=== PATIENT | male | born 1955 | race Caucasian/White ===

== ENCOUNTER 2017-06-20 10:46 | Outpatient (CLI) | payer MEDICAID | END 2017-06-20 10:47 | disposition EMS.NT | LOC: EMS 10:46 | PROVIDERS: ATTEND Surgery | DX: S01.00XA Unspecified open wound of scalp, initial encounter (principal); X58.XXXA Exposure to other specified factors, initial encounter; Y92.029 Unspecified place in mobile home as the place of occurrence of the external cause ==

== ENCOUNTER 2018-06-25 15:59 | Emergency (ER) | payer MEDICAID ==
[2018-06-25 16:14] VITALS: BP 132/62
--- NOTE | 2018-06-25 16:26 | ED Physician Documentation ---
PD HPI LOWER EXT INJURY - Stated complaint Stated Complaint: RT ANKLE INJ - Chief complaint Chief Complaint: Ext Problem - History obtained from History obtained from: Patient - History of Present Illness PD HPI LOW EXT INJURY LOCATION: Right, Ankle Type of injury: Twist (he accidentally stepped in a pothole and his foot twisted and has pain laterally on walking and weight bearing.) Timing - onset: Last night Review of Systems Constitutional: denies: Fever, Chills, Myalgias Skin: denies: Abrasion (s), Laceration (s) Musculoskeletal: denies: Neck pain, Back pain PD PAST MEDICAL HISTORY - Past Medical History Cardiovascular: None Respiratory: None - Present Medications Home Medications: Ambulatory Orders Medication Instructions Recorded Confirmed Amlodipine Besylate 10 mg PO DAILY 06/25/18 06/25/18 Guaifenesin/Dextromethorphan [Qc 118 ml PO DAILY 06/25/18 06/25/18 Tussin Dm Liquid] Metoprolol Succinate 50 mg PO DAILY 06/25/18 06/25/18 Pantoprazole [Protonix] 40 mg PO DAILY 06/25/18 06/25/18 QUEtiapine [SEROquel] 50 mg PO QPM 06/25/18 06/25/18 Trazodone HCl 100 mg PO DAILY 06/25/18 06/25/18 - Allergies Allergies/Adverse Reactions: Allergies Allergy/AdvReac Type Severity Reaction Status Date / Time No Known Drug Allergies Allergy Verified 06/25/18 16:13 PD ED PE NORMAL - Vitals Vital signs reviewed: Yes - General General: Alert and oriented X 3, Well developed/nourished, Other - HEENT HEENT: Atraumatic - Derm Derm: Normal color, Warm and dry - Extremities Extremities: No deformity, Other (right ankle tender anterolateral aspect and at proximal tarsals.) Results - Vitals Vitals: Oxygen O2 Source Room air Departure - Departure Disposition: Home, Self Care Clinical Impression: Ankle sprain Qualifiers: Encounter type: initial encounter Involved ligament of ankle: unspecified ligament Laterality: right Qualified Code(s): S93.401A - Sprain of unspecified ligament of right ankle, initial encounter Condition: Stable Record reviewed to determine appropriate education?: Yes Instructions: ED Sprain Ankle Follow-Up: ROSE ROGERS ARNP [Primary Care Provider] - Comments: Use ibuprofen or naproxen as needed for inflammation. Rest and elevate the ankle often for the next day or 2 to reduce swelling. Use the boot orthosis to support the ankle when up and around for the next week or 2 until fully healed. Your x-ray is normal without any fractures but you obviously have a good injury of the ligaments and muscles given the pain and swelling. This can take a couple of weeks to heal up. Activity as able. Discharge Date/Time: 06/25/18 18:28
[2018-06-25] MEDS ORDERED: IBUPROFEN 600 MG TABLET PO STA (16:33)
[2018-06-25] MEDS ORDERED: ACETAMINOPHEN 325 MG TABLET PO STA (16:34)
[2018-06-25] MEDS ORDERED: traMADol 50 MG TABLET PO STA (16:34)
--- NOTE | 2018-06-25 17:18 | XRAY Report ---
Reason: inversion injury ankle yesterday; swelling and daniel Procedure Date: 06/25/2018 Accession Number: [id number] / [id number] Procedure: XR - Ankle 3 View RT CPT Code: FULL RESULT: EXAM: RIGHT ANKLE RADIOGRAPHY EXAM DATE: 06/25/2018 05:08 PM. CLINICAL HISTORY: Inversion injury ankle yesterday. Right ankle pain and swelling. COMPARISON: None. TECHNIQUE: 3 views. FINDINGS: Bones: No acute fracture or bony lesion. Degenerative spurring. Joints: Ankle mortise is well-maintained. No ankle effusion. Calcification of the syndesmosis noted. Degenerative changes at the distal tibia/fibular joint space. Soft Tissues: Soft tissue edema. IMPRESSION: 1. No acute osseous abnormalities. 2. Soft tissue edema. 3. Degenerative changes of the right ankle. RADIA
== END 2018-06-25 18:28 | disposition home or self-care (01) ==
LOC: ED 15:59
DX: S93.401A Sprain of unspecified ligament of right ankle, initial encounter (principal); W18.42XA Slipping, tripping and stumbling without falling due to stepping into hole or opening, initial encounter; X50.1XXA Overexertion from prolonged static or awkward postures, initial encounter
CPT/HCPCS: 73610; 99282; 99283; A9270

== ENCOUNTER 2018-10-19 13:39 | Emergency (ER) | payer MEDICAID ==
[2018-10-19 15:02] LABS: BASOPHILS # (AUTO) 0.1 10^3/uL (0.0-0.1); BASOPHILS % (AUTO) 0.8 %; EOSINOPHILS # (AUTO) 0.2 10^3/uL (0.0-0.7); EOSINOPHILS % (AUTO) 3.7 %; HGB - HEMOGLOBIN 12.2 g/dL (14.0-18.0); LYMPHOCYTES # (AUTO) 2.6 10^3/uL (1.5-3.5); LYMPHOCYTES % (AUTO) 38.8 %; MEAN CORPUSCULAR HEMOGLOBIN 36.2 pg (27.0-31.0); MEAN CORPUSCULAR HGB CONC 33.3 g/dL (32.0-36.0); MEAN CORPUSCULAR VOLUME 108.9 fL (80.0-94.0); MEAN PLATELET VOLUME 7.3 fL (7.4-11.4); MONOCYTES # (AUTO) 0.8 10^3/uL (0.0-1.0); NEUTROPHILS # (AUTO) 2.9 10^3/uL (1.5-6.6); NEUTROPHILS % (AUTO) 44.7 %; PLT - PLATELET COUNT 115 10^3/uL (130-450); RED BLOOD COUNT 3.36 10^6/uL (4.70-6.10); RED CELL DISTRIBUTION WIDTH 17.1 % (12.0-15.0); WHITE BLOOD COUNT 6.6 x10^3/uL (4.8-10.8)
[2018-10-19] MEDS ORDERED: chlordiazePOXIDE 25 MG CAPSULE PO STA (15:07)
--- NOTE | 2018-10-19 15:07 | ED Physician Documentation ---
History of Present Illness - Stated complaint Stated Complaint: ETOH DETOX - Chief complaint Chief Complaint: MHE - History obtained from History obtained from: Patient - History of Present Illness Timing: Today Pain level max: 0 Pain level now: 0 - Additonal information Additional information: 63-year-old male presents the emergency department stating he wants to detox from alcohol. He has never had seizures or hallucinations. Has been to rehab before. States he drinks 6-8 servings of liquor per day. Last drink was this morning. Nothing makes it better or worse Review of Systems Ten Systems: 10 systems reviewed and negative Constitutional: denies: Fever, Chills Nose: denies: Rhinorrhea / runny nose, Congestion Throat: denies: Sore throat Cardiac: denies: Chest pain / pressure GI: denies: Vomiting, Diarrhea Skin: denies: Rash Musculoskeletal: denies: Neck pain, Back pain Neurologic: denies: Seizure, Headache PD PAST MEDICAL HISTORY - Past Medical History Cardiovascular: None Respiratory: None - Past Surgical History Past Surgical History: No - Present Medications Home Medications: Ambulatory Orders Medication Instructions Recorded Confirmed Amlodipine Besylate 10 mg PO DAILY 06/25/18 06/25/18 Guaifenesin/Dextromethorphan [Qc 118 ml PO DAILY 06/25/18 06/25/18 Tussin Dm Liquid] Metoprolol Succinate 50 mg PO DAILY 06/25/18 06/25/18 Pantoprazole [Protonix] 40 mg PO DAILY 06/25/18 06/25/18 QUEtiapine [SEROquel] 50 mg PO QPM 06/25/18 06/25/18 Trazodone HCl 100 mg PO DAILY 06/25/18 06/25/18 chlordiazePOXIDE [Librium] 25 - 50 mg PO Q6H PRN #20 capsule 10/19/18 - Allergies Allergies/Adverse Reactions: Allergies Allergy/AdvReac Type Severity Reaction Status Date / Time No Known Drug Allergies Allergy Verified 10/19/18 13:46 - Social History Does the pt smoke?: Yes Smoking Status: Current every day smoker Does the pt drink ETOH?: Yes Does the pt have substance abuse?: No - Immunizations Immunizations are current?: Yes - POLST Patient has POLST: No PD ED PE NORMAL - Vitals Vital signs reviewed: Yes - General General: Alert and oriented X 3, No acute distress - HEENT HEENT: PERRL, Moist mucous membranes - Neck Neck: Supple, no meningeal sign - Cardiac Cardiac: RRR, Strong equal pulses - Respiratory Respiratory: No respiratory distress, Clear bilaterally - Abdomen Abdomen: Soft, Non tender, Non distended - Derm Derm: Warm and dry, No rash - Extremities Extremities: No edema - Neuro Neuro: Alert and oriented X 3 - Psych Psych: Normal mood, Normal affect Results - Vitals Vitals: Vital Signs - 24 hr 10/19/18 10/19/18 13:42 15:39 Temperature 36.6 C Heart Rate 104 H 98 Respiratory 18 18 Rate Blood Pressure 169/69 H 167/95 H O2 Saturation 97 95 Oxygen O2 Source Room air - Labs Labs: Laboratory Tests 10/19/18 10/19/18 10/19/18 14:58 14:58 15:04 WBC 6.6 RBC 3.36 L Hgb 12.2 L Hct 36.5 L MCV 108.9 H MCH 36.2 H MCHC 33.3 RDW 17.1 H Plt Count 115 L MPV 7.3 L Neut # (Auto) 2.9 Lymph # (Auto) 2.6 [place] # (Auto) 0.8 Eos # (Auto) 0.2 Baso # (Auto) 0.1 Absolute Nucleated RBC 0.01 Nucleated RBC % 0.1 Sodium 142 Potassium 3.7 Chloride 105 Carbon Dioxide 19 L Anion Gap 18.0 H BUN 10 Creatinine 0.9 Estimated GFR (MDRD) 86 L Glucose 140 H Calcium 10.3 Total Bilirubin 1.9 H AST 93 H ALT 34 Alkaline Phosphatase 94 Total Protein 8.1 Albumin 3.9 Globulin 4.2 Albumin/Globulin Ratio 0.9 L Lipase 107 H Urine Color DARK YELLOW Urine Clarity CLEAR Urine pH 6.0 Ur Specific [place] 1.020 Urine Protein 100 H Urine Glucose (UA) NEGATIVE Urine Ketones NEGATIVE Urine Occult Blood SMALL H Urine Nitrite NEGATIVE Urine Bilirubin NEGATIVE Urine Urobilinogen >=8.0 H Ur Leukocyte Esterase NEGATIVE Urine RBC 0-5 Urine WBC 0-3 Ur Squamous Epith Cells FEW Squamous Urine Bacteria None Seen Urine Casts 6-10 Hyaline Casts Ur Microscopic Review INDICATED Urine Culture Comments NOT INDICATED Salicylates < 6.0 Urine Opiates Screen NEGATIVE Ur Oxycodone Screen NEGATIVE Urine Methadone Screen NEGATIVE Ur Propoxyphene Screen NEGATIVE Acetaminophen < 10 L Ur Barbiturates Screen NEGATIVE Ur Tricyclics Screen NEGATIVE Ur Phencyclidine Scrn NEGATIVE Ur Amphetamine Screen NEGATIVE U Methamphetamines Scrn NEGATIVE U Benzodiazepines Scrn NEGATIVE Urine Cocaine Screen NEGATIVE U Cannabinoids Screen NEGATIVE Ethyl Alcohol 176.8 PD MEDICAL DECISION MAKING - ED course Complexity details: reviewed results, re-evaluated patient, considered differential, d/w patient ED course: 63-year-old male given a banana bag. Social work consulted. Given resources for rehab. Given a dose of Librium here. We will have him follow-up with rehab. Patient counseled regarding signs and symptoms for which I believe and urgent re-evaluation would be necessary. Patient with good understanding of and agreement to plan and is comfortable going home at this time This document was made in part using voice recognition software. While efforts are made to proofread this document, sound alike and grammatical errors may occur. Departure - Departure Disposition: 01 Home, Self Care Clinical Impression: Alcoholic intoxication Qualifiers: Complication of substance-induced condition: uncomplicated Qualified Code(s): F10.920 - Alcohol use, unspecified with intoxication, uncomplicated Condition: Good Instructions: ED Alcohol Intoxication Follow-Up: ROSE ROGERS ARNP [Primary Care Provider] - Within 1 week Prescriptions: chlordiazePOXIDE [Librium] 25 - 50 mg PO Q6H PRN #20 capsule PRN Reason: Alcohol Withdrawal Comments: Follow up with rehab and detox as instructed by social work today. Return if you worsen. Discharge Date/Time: 10/19/18 16:33
[2018-10-19 15:13] LABS: MUDS CUTOFF CONCENTRATIONS CUTOFF CONC BELOW:
[2018-10-19 15:17] LABS: GLUCOSE, URINE (UA) NEGATIVE (NEGATIVE); KETONES,URINE (UA) NEGATIVE (NEGATIVE); LEUKOCYTE ESTERASE, URINE NEGATIVE (NEGATIVE); NITRITE,URINE NEGATIVE (NEGATIVE); OCCULT BLOOD,URINE SMALL (NEGATIVE); PROTEIN,URINE 100 mg/dL (NEGATIVE); UROBILINOGEN,URINE >=8.0 E.U./dL (NORMAL)
[2018-10-19 15:18] LABS: ACETAMINOPHEN < 10 ug/mL (10-30); ALBUMIN 3.9 g/dL (3.2-5.5); ALBUMIN/GLOBULIN RATIO 0.9 (1.0-2.2); ALKALINE PHOSPHATASE 94 IU/L (42-121); ALT ALANINE AMINOTRANSFERASE 34 IU/L (10-60); AST ASPARTATE AMINOTRANSFERASE 93 IU/L (10-42); BILIRUBIN,TOTAL 1.9 mg/dL (0.2-1.0); BUN - BLOOD UREA NITROGEN 10 mg/dL (6-20); CALCIUM 10.3 mg/dL (8.5-10.3); CARBON DIOXIDE - CO2 19 mmol/L (21-32); CHLORIDE 105 mmol/L (101-111); CREATININE 0.9 mg/dL (0.6-1.2); GFR - MDRD 86 (>89); GLUCOSE 140 mg/dL (70-100); LIPASE 107 U/L (22-51); SALICYLATE < 6.0 mg/dL; SODIUM 142 mmol/L (135-145); TOTAL PROTEIN 8.1 g/dL (6.7-8.2)
[2018-10-19 15:21] LABS: BILIRUBIN,URINE NEGATIVE (NEGATIVE); CLARITY,URINE CLEAR (CLEAR); ICTOTEST,URINE NEGATIVE
[2018-10-19 15:30] LABS: BACTERIA,URINE None Seen /HPF (None Seen); CASTS, URINE 6-10 Hyaline Casts /LPF; RBC,URINE 0-5 /HPF (0-5); SQUAMOUS EPITHELIAL CELL,UR FEW Squamous (<= Few)
[2018-10-19 15:31] LABS: AMPHETAMINE SCREEN,URINE NEGATIVE (NEGATIVE); BENZODIAZEPINES SCREEN, URINE NEGATIVE (NEGATIVE); COCAINE SCREEN URINE NEGATIVE (NEGATIVE); METHADONE SCREEN, URINE NEGATIVE (NEGATIVE); METHAMPHETAMINES SCREEN, URINE NEGATIVE (NEGATIVE); OPIATE SCREEN, URINE NEGATIVE (NEGATIVE); OXYCODONE SCREEN, URINE NEGATIVE (NEGATIVE); PROPOXYPHENE SCREEN, URINE NEGATIVE (NEGATIVE); TRICYCLIC ANTIDEPRESSANT,URINE NEGATIVE (NEGATIVE)
[2018-10-19 15:40] VITALS: BP 167/95
== END 2018-10-19 16:33 | disposition home or self-care (01) ==
LOC: ED 13:39
DX: F10.920 Alcohol use, unspecified with intoxication, uncomplicated (principal); F17.200 Nicotine dependence, unspecified, uncomplicated
CPT/HCPCS: 36415; 80053; 80306; 80307; 80320; 80329; 81001; 83690; 85025; 99283; A9270; 81003; 87086

== ENCOUNTER 2019-03-14 00:36 | Outpatient (CLI) | payer MEDICAID | END 2019-03-14 00:37 | disposition critical access hospital (66) | LOC: EMS 00:36 | PROVIDERS: ATTEND Surgery | DX: R10.9 Unspecified abdominal pain (principal); R07.9 Chest pain, unspecified | CPT/HCPCS: A0425; A0427; A0999 ==

== ENCOUNTER 2019-03-14 01:08 | Emergency (ER) | payer MEDICAID ==
[2019-03-14] MEDS ORDERED: FOLIC ACID INJ 1 MG, THIAMINE INJ 100 MG, MAGNESIUM SULFATE 2 GM, MULTIVITAMIN 10 ML in... IV STA ×5 (01:18)
[2019-03-14] MEDS ORDERED: ONDANSETRON 4 MG/2 ML VIAL IVP STA ×4 (01:19→16:04)
[2019-03-14] MEDS ORDERED: HYDROmorphone 1 MG/ML CARPUJECT IVP STA ×4 (01:19→16:04)
[2019-03-14 01:35] LABS: BASOPHILS # (AUTO) 0.1 10^3/uL (0.0-0.1); BASOPHILS % (AUTO) 0.6 %; EOSINOPHILS % (AUTO) 0.5 %; HGB - HEMOGLOBIN 12.2 g/dL (14.0-18.0); LYMPHOCYTES # (AUTO) 0.5 10^3/uL (1.5-3.5); MEAN CORPUSCULAR HEMOGLOBIN 32.5 pg (27.0-31.0); MEAN CORPUSCULAR HGB CONC 33.4 g/dL (32.0-36.0); MEAN CORPUSCULAR VOLUME 97.3 fL (80.0-94.0); MEAN PLATELET VOLUME 10.7 fL (7.4-11.4); MONOCYTES # (AUTO) 0.5 10^3/uL (0.0-1.0); MONOCYTES % (AUTO) 5.5 %; NEUTROPHILS # (AUTO) 7.4 10^3/uL (1.5-6.6); NEUTROPHILS % (AUTO) 86.8 %; PLT - PLATELET COUNT 112 10^3/uL (130-450); RED BLOOD COUNT 3.75 10^6/uL (4.70-6.10); RED CELL DISTRIBUTION WIDTH 15.2 % (12.0-15.0); WHITE BLOOD COUNT 8.5 x10^3/uL (4.8-10.8)
[2019-03-14 01:43] LABS: ALBUMIN 4.2 g/dL (3.2-5.5); ALBUMIN/GLOBULIN RATIO 0.9 (1.0-2.2); BILIRUBIN,TOTAL 3.5 mg/dL (0.2-1.0); CALCIUM 11.3 mg/dL (8.5-10.3); CREATININE 0.8 mg/dL (0.6-1.2); TOTAL PROTEIN 8.9 g/dL (6.7-8.2)
[2019-03-14] MEDS ORDERED: THIAMINE 100 MG/1 ML 2 ML MDV ONE (01:43)
[2019-03-14] MEDS ORDERED: POTASSIUM CHLORIDE 20 MEQ TABLET PO STA (01:52)
[2019-03-14] MEDS: POTASSIUM CHLOR 10 MEQ/100 ML 10 MEQ/100 ML BAG IV SCH ×7 (02:08→08:16)
[2019-03-14] MEDS ORDERED: IOVERSOL 320 100 ML VIAL IVP ONE ×2 (02:23→03:18)
--- NOTE | 2019-03-14 02:32 | ED Physician Documentation ---
PD HPI ABD PAIN - Stated complaint Stated Complaint: ABD PAIN - Chief complaint Chief Complaint: Abd Pain - History obtained from History obtained from: Patient - History of Present Illness Timing - onset: Today Timing - duration: Hours Timing - details: Abrupt onset, Still present Quality: Sharp, Fullness/distended, Pain Location: All over / everywhere Improved by: Laying still Worsened by: Moving, Position, Palpation Associated symptoms: Nausea, Diarrhea Similar symptoms before: No diagnosis Recently seen: Clinic - Additional information Additional information: 63-year-old alcoholic male has developed acute epigastric abdominal pain this evening that he states is similar to what he has had previously and usually this runs its course in 1 to 2 hours. Tonight he had a homemade cheeseburger he has had pain persistent since he has had some nausea he has not had vomiting he has had severe pain. He states that the pain became intolerable and he finally called 911. He brings in paperwork that he is being worked up by a bilingual teacher and knows that he had some lesions on his liver. He does have elevated calcium as well. Review of Systems Constitutional: denies: Fever, Myalgias, Fatigue Eyes: denies: Decreased vision Ears: denies: Ear pain Nose: denies: Rhinorrhea / runny nose, Congestion Throat: denies: Sore throat Cardiac: denies: Chest pain / pressure, Palpitations Respiratory: denies: Dyspnea, Cough GI: reports: Abdominal Pain, Nausea, Diarrhea. denies: Vomiting, Constipation : denies: Dysuria, Frequency PD PAST MEDICAL HISTORY - Past Medical History Past Medical History: Yes Cardiovascular: None Respiratory: None Endocrine/Autoimmune: Type 2 diabetes, HyPERthyroidism GI: GERD, Chronic diarrhea, Hepatitis, Cirrhosis, Diverticulitis, Other Musculoskeletal: Chronic back pain - Past Surgical History Past Surgical History: Yes General: Appendectomy, Bowel surgery - Present Medications Home Medications: Ambulatory Orders Medication Instructions Recorded Confirmed Amlodipine Besylate 10 mg PO DAILY 06/25/18 06/25/18 Guaifenesin/Dextromethorphan [Qc 118 ml PO DAILY 06/25/18 06/25/18 Tussin Dm Liquid] Metoprolol Succinate 50 mg PO DAILY 06/25/18 06/25/18 Pantoprazole [Protonix] 40 mg PO DAILY 06/25/18 06/25/18 QUEtiapine [SEROquel] 50 mg PO QPM 06/25/18 06/25/18 Trazodone HCl 100 mg PO DAILY 06/25/18 06/25/18 chlordiazePOXIDE [Librium] 25 - 50 mg PO Q6H PRN #20 capsule 10/19/18 - Allergies Allergies/Adverse Reactions: Allergies Allergy/AdvReac Type Severity Reaction Status Date / Time No Known Drug Allergies Allergy Verified 10/19/18 13:46 - Social History Does the pt smoke?: Yes Smoking Status: Current every day smoker Does the pt drink ETOH?: Yes Does the pt have substance abuse?: No - Immunizations Immunizations are current?: Yes - POLST Patient has POLST: No PD ED PE NORMAL - Vitals Vital signs reviewed: Yes (tachy and hypertensive ) - General General: Alert and oriented X 3, Well developed/nourished, Other (grunting in pain ) - HEENT HEENT: Atraumatic, PERRL - Neck Neck: Supple, no meningeal sign, No bony TTP - Cardiac Cardiac: No murmur, Other (tachy to 110) - Respiratory Respiratory: No respiratory distress, Clear bilaterally - Abdomen Abdomen: Other (The abdomen is firm and tender. There is no specificity to the tenderness. Both right and left upper quadrant. There is no gaurding. ) - Back Back: No CVA TTP, No spinal TTP - Derm Derm: Normal color, Warm and dry, No rash - Extremities Extremities: No deformity, No edema - Neuro Neuro: Alert and oriented X 3, computer systems auditor 2-12 intact, No motor deficit, No sensory deficit, Normal speech Eye Opening: Spontaneous Motor: Obeys Commands Verbal: Oriented GCS Score: 15 - Psych Psych: Normal mood, Normal affect Results - Vitals Vitals: Vital Signs - 24 hr 03/14/19 03/14/19 03/14/19 01:09 01:55 02:04 Temperature 37.0 C Heart Rate 104 H Respiratory 20 18 Rate Blood Pressure 163/95 H O2 Saturation 97 88 L 03/14/19 03/14/19 03/14/19 02:34 02:52 04:06 Temperature 36.9 C Heart Rate 108 H 120 H 117 H Respiratory 19 26 H 20 Rate Blood Pressure 180/84 H 180/84 H 158/97 H O2 Saturation 95 95 96 03/14/19 03/14/19 03/14/19 05:29 05:35 07:08 Temperature 37 C Heart Rate 120 H 116 H 105 H Respiratory 20 21 17 Rate Blood Pressure 158/93 H 129/73 O2 Saturation 97 96 94 Oxygen O2 Source Nasal cannula Oxygen Flow Rate 2 - Labs Labs: Laboratory Tests 03/14/19 03/14/19 03/14/19 01:25 01:25 02:55 WBC 8.5 RBC 3.75 L Hgb 12.2 L Hct 36.5 L MCV 97.3 H MCH 32.5 H MCHC 33.4 RDW 15.2 H Plt Count 112 L MPV 10.7 Neut # (Auto) 7.4 H Lymph # (Auto) 0.5 L [place] # (Auto) 0.5 Eos # (Auto) 0.0 Baso # (Auto) 0.1 Absolute Nucleated RBC 0.00 Nucleated RBC % 0.0 Sodium 142 Potassium 2.9 L Chloride 102 Carbon Dioxide 23 Anion Gap 17.0 H BUN 11 Creatinine 0.8 Estimated GFR (MDRD) 98 Glucose 166 H Calcium 11.3 H Total Bilirubin 3.5 H AST 161 H ALT 52 Alkaline Phosphatase 130 H Total Protein 8.9 H Albumin 4.2 Globulin 4.7 H Albumin/Globulin Ratio 0.9 L Lipase 84 H Urine Color YELLOW Urine Clarity CLEAR Urine pH 7.0 Ur Specific [place] 1.015 Urine Protein 30 H Urine Glucose (UA) NEGATIVE Urine Ketones 15 H Urine Occult Blood TRACE-INTA Urine Nitrite NEGATIVE Urine Bilirubin SMALL H Urine Urobilinogen 4 H Ur Leukocyte Esterase NEGATIVE Urine RBC 0-5 Urine WBC 0-3 Ur Squamous Epith Cells NONE SEEN Urine Bacteria None Seen Ur Microscopic Review INDICATED Urine Culture Comments NOT INDICATED Ethyl Alcohol 119.0 - Rads (name of study) CT ab/pel with Radiology: Prelim report reviewed (Impression: 1. Mildly distended gallbladder containing gallstones and/or sludge. No pericholecystic inflammation evident. Right upper quadrant ultrasound can be performed for further access. 2. Status post appendectomy and bowel surgery. No bowel obstruction or free air. 3. Colonic diverticula without evidence of acute diverticulitis. 4. Mild nodularity of liver surface consistent with cirrhotic change. 5. Enlarged hepatic hilar lymph nodes, nonspecific and may be related to underlying liver disease. 6. Small nonobstructive renal calculi. No hydronephrosis or ureteral calculus.), EMP read indepedently, See rad report u/s abd Radiology: Prelim report reviewed (Impression: 1. Multiple gallstones within a mildly distended gallbladder. No pathologic wall thickening. Absent Mejia sign. Findings are therefore equivocal for acute cholecystitis. 2. There is mild extrahepatic biliary ductal dilation measuring up to 7.7 mm. Distal common bile duct demonstrates some tapering. Distal most portion of the common bile duct is obscured by bowel gas. 3. Severe hepatic steatosis and heterogeneity. This could be a sequelae of known hepatitis. 4. Incidentally noted nonobstructing 5 to 6 mm right mid to lower kidney stone.), EMP read indepedently, See rad report PD MEDICAL DECISION MAKING - ED course Complexity details: reviewed old records, reviewed results, re-evaluated patient, considered differential, d/w patient, d/w oim consultant (Dr. Christiane Garrido at [facility] recommends MRCP here and if obstruted send otherwise would suggest jorge be done here. Dr. Benito surgery here recommends MRCP and if not obstucted -- take the gallbladder out. ) ED course: 63-year-old male with recurrent abdominal pain presents this evening with severe abdominal pain that does not go away as usual. He has generalized abdominal pain and CT exam of the abdomen pelvis is remarkable for a dilated gallbladder full of stones and sludge. The biochemical profile is consistent with obstruction with elevation of the alkaline phosphatase and a bilirubin of 3.6. The ultrasound suggests obstruction with CBD of 7.7mm. Patient has some improvement in his pain with use of intravenous Dilaudid and Zofran as well as Toradol. We consulted GI in [place] and surgery here and the patient will have MRCP done here. At shift change care of the patient is turned over to Dr. Meyer awaiting results of MRCP. Departure - Departure Clinical Impression: Dehydration Cholelithiasis Qualifiers: Cholelithiasis location: gallbladder Cholecystitis presence: with cholecystitis Cholecystitis acuity: acute and chronic Biliary obstruction: with biliary obstruction Qualified Code(s): K80.13 - Calculus of gallbladder with acute and chronic cholecystitis with obstruction Abdominal pain Qualifiers: Abdominal location: epigastric Qualified Code(s): R10.13 - Epigastric pain
[2019-03-14] MEDS ORDERED: SODIUM CHLORIDE 0.9% 1,000 ML IV ONE ×2 (02:34→05:07)
[2019-03-14 02:57] LABS: GLUCOSE, URINE (UA) NEGATIVE (NEGATIVE); KETONES,URINE (UA) 15 mg/dL (NEGATIVE); LEUKOCYTE ESTERASE, URINE NEGATIVE (NEGATIVE); NITRITE,URINE NEGATIVE (NEGATIVE); OCCULT BLOOD,URINE TRACE-INTA (NEGATIVE); PROTEIN,URINE 30 mg/dL (NEGATIVE); UROBILINOGEN,URINE 4 E.U./dL (NORMAL)
[2019-03-14 03:01] LABS: CLARITY,URINE CLEAR (CLEAR)
[2019-03-14 03:03] LABS: BILIRUBIN,URINE SMALL (NEGATIVE); ICTOTEST,URINE POSITIVE
[2019-03-14 03:06] LABS: BACTERIA,URINE None Seen /HPF (None Seen); RBC,URINE 0-5 /HPF (0-5); SQUAMOUS EPITHELIAL CELL,UR NONE SEEN (<= Few)
--- NOTE | 2019-03-14 04:14 | CT Report ---
Reason: general abdominal pain Procedure Date: 03/14/2019 Accession Number: [id number] / [id number] Procedure: CT - Abdomen/Pelvis W CPT Code: FULL RESULT: EXAM: CT ABDOMEN AND PELVIS EXAM DATE: 03/14/2019 03:15 AM. CLINICAL HISTORY: General abdominal pain. COMPARISONS: ABD/PEL 09/02/2010 1:01 AM. TECHNIQUE: Routine helical CT imaging was performed through the abdomen and pelvis. IV contrast: OPTI 320 100ML. Enteric contrast: No. Reconstructions: Coronal and sagittal. In accordance with CT protocol optimization, one or more of the following dose reduction techniques were utilized for this exam: automated exposure control, adjustment of mA and/or KV based on patient size, or use of iterative reconstructive technique. FINDINGS: Lung Bases: Problem: Mild atelectasis in right anterior lung, incompletely imaged. Subcentimeter epicardial lymph nodes. Scattered coronary artery calcifications. Liver: Mild nodularity of liver surface suggestive of cirrhosis. Gallbladder/Bile Ducts: Distended gallbladder containing sludge and/or gallstones. No significant biliary dilation. Spleen: Stable splenic size, mildly prominent. Pancreas: Normal. Adrenal Glands: Normal. Kidneys: Probable right renal cyst measuring 1.6 cm. Nonobstructive renal calculi. No hydronephrosis or ureteral calculus. Peritoneal Cavity/Bowel: No bowel obstruction or significant bowel wall thickening. Colonic diverticula without evidence of acute diverticulitis. Appendix is surgically absent. Enlarged lymph nodes at hepatic hilum measuring up to 1.8 cm in short axis. No significant free fluid or free air. Pelvic Organs: Normal. The bladder and visualized pelvic organs are within normal limits. Prostate measures 4.7 cm transverse. Vasculature: Atherosclerotic vascular disease. No aneurysms or other significant abnormality. Bones: Osseous degenerative changes. No acute osseous abnormality. Other: Fat-containing umbilical hernia. Small fat-containing inguinal hernias, larger on the left than right. IMPRESSION: 1. Mildly distended gallbladder containing gallstones and/or sludge. No pericholecystic inflammation evident. Right upper quadrant ultrasound can be performed to further assess. 2. Status post appendectomy and bowel surgery. No bowel obstruction or free air. 3. Colonic diverticula without evidence of acute diverticulitis. 4. Mild nodularity of liver surface consistent with cirrhotic change. 5. Enlarged hepatic hilar lymph nodes, nonspecific and may be related to underlying liver disease. 6. Small nonobstructive renal calculi. No hydronephrosis or ureteral calculus. RADIA
[2019-03-14] MEDS ORDERED: KETOROLAC 30 MG/ML VIAL IVP STA (04:57)
--- NOTE | 2019-03-14 05:17 | Ultrasound Report ---
Reason: RUQ pain Procedure Date: 03/14/2019 Accession Number: [id number] / [id number] Procedure: US - Abdomen Limited CPT Code: FULL RESULT: EXAM: ABDOMEN ULTRASOUND LIMITED, RUQ EXAM DATE: 03/14/2019 04:57 AM CLINICAL HISTORY: Right upper quadrant pain. Chronic diarrhea, hepatitis, abnormal bilirubin and LFTs. COMPARISON: ABDOMEN/PELVIS W/ 03/14/2019 3:06 AM. TECHNIQUE: Real-time scanning was performed with static images obtained. FINDINGS: Liver: Severe increased and heterogeneous echogenicity. No suspicious focal lesion. Liver measures 23.3 cm in length. Portal Vein: Patent with hepatopetal flow. Gallbladder: Mildly distended. Multiple gallstones. Trace free fluid. No pathologic wall thickening. Biliary System: CBD measures 7.7 mm. No intrahepatic or extrahepatic ductal dilatation. Pancreas: Normal appearing head and body. Other portions are obscured by overlying structures. Right Kidney: There is a possible 4.9 mm right mid kidney stone. Small septated cystic abnormality within the right mid kidney noted measuring 1.9 cm. The right kidney measures 12.7 cm in length. Additional possible stone within the right lower kidney, measuring 5.6 mm. Other: None. IMPRESSION: 1. Multiple gallstones within a mildly distended bladder. No pathologic wall thickening. Absent Mejia sign. Findings are, therefore, equivocal for acute cholecystitis. 2. There is mild extrahepatic biliary ductal dilation measuring up to 7.7 mm. Distal CBD demonstrates some tapering. Distal most portion of the CBD is obscured by bowel gas. 3. Severe hepatic steatosis and heterogeneity. This could be a sequela of known hepatitis. 4. Incidentally noted nonobstructing 5-6 mm right mid to lower kidney stone. RADIA
[2019-03-14] MEDS ORDERED: PROMETHAZINE INJ 25 MG in SODIUM CHLORIDE 0.9% 50 ML IV STA (07:29)
[2019-03-14] MEDS ORDERED: GADOBUTROL 15 MMOL/15 ML VIAL ONE (11:56)
[2019-03-14] MEDS ORDERED: GADOBUTROL 15 MMOL/15 ML VIAL IVP ONE (12:56)
--- NOTE | 2019-03-14 13:40 | MRI Report ---
Reason: RUQ pain elevated bili 7.7mm CBD Procedure Date: 03/14/2019 Accession Number: [id number] / [id number] Procedure: MRI - MRCP W/WO CPT Code: FULL RESULT: EXAM: MR ABDOMEN WITH AND WITHOUT CONTRAST EXAM DATE: 03/14/2019 01:01 PM. CLINICAL HISTORY: Right upper quadrant pain. COMPARISON: ABDOMEN/PELVIS W/ 03/14/2019 3:06 AM. TECHNIQUE: Multiplanar breath-hold T1, T2, and DWI sequences obtained through the abdomen on an MR scanner. Images obtained before and after administration of 9 mL Gadavist intravenous contrast. FINDINGS: Lung Bases: Minor atelectatic changes are suggested. No significant effusion. Liver: Nodular contour of the liver suggesting cirrhosis is seen. Heterogeneous fatty change of the liver is seen. On postcontrast imaging there is heterogeneous enhancement of the liver parenchyma. In segment 4A there is a 9 mm subcapsular hypervascular focus seen without definitive washout. The portal and hepatic venous vasculature appears relatively patent. There is periportal lymphadenopathy measuring up to 3.5 x 1.8 cm (image ). Gallbladder/bile ducts: Multiple gallstones are seen in the gallbladder. No significant gallbladder wall thickening or surrounding inflammatory changes. There is no intrahepatic or extrahepatic biliary dilatation. The common bile duct measures up to 5 mm and tapers smoothly distally. Pancreas: The pancreas appears normal with no mass or ductal dilatation. Spleen: Mild splenomegaly measuring 13.9 cm is seen. No masses. Kidneys and Adrenals: The kidneys appear normal with no mass or hydronephrosis. There are a few small cysts in the kidneys. The adrenals appear normal. Bowel: The visualized bowel loops are grossly intact. Trace ascites is seen in the perihepatic space. Retroperitoneum: The retroperitoneal structures appear normal with no mass or lymphadenopathy. IMPRESSION: 1. Cholelithiasis without evidence of choledocholithiasis or biliary dilation. 2. Cirrhotic liver with slightly heterogeneous appearing fatty change. 9 mm hypervascular focus without washout in segment 4A is seen consistent with LR-3 lesion. 3. Mild periportal lymphadenopathy which may be related to active hepatitis. 4. Mild splenomegaly and trace ascites. RADIA
--- NOTE | 2019-03-14 15:07 | CONSULTATION NOTE ---
Referring Provider Name of Referring Provider:: Dr. Meyer Consult Date: 03/14/19 Chief Complaint - Chief Complaint Chief Complaint: abd pain History of Present Illness - Admitted From Admitted From:: ER - History Obtained From Records Reviewed: yes History obtained from: pt, records Exam Limitations: poor historian - History of Present Illness HPI Comment/Other: 63 yo male with onset of diffuse abdominal pain, N/V last night, similar to multiple prior similar episodes, which prompted ER evaluation this morning. He reports sx not clearly related to meals and denies fatty food intolerance. Takes a PPI chronically for presumed GERD. He reports hx of hepatitis C x many years, treated over the past several years on the [facility], details unclear. Hx chronic alcoholism; he reports he has been decreasing his alcohol intake from 7-8 mixed drinks/day to 3-4 per day. He was seen in the ER in 10/2018 with alcohol intoxication and was noted to have abn lft's with bili 1.9 and transaminitis and mildly elevated lipase at that time, along with thrombocytopenia and macrocytosis. He has received all of his medical care on the [facility] until the past few months after moving to [facility]. No local PCP. He reports chronic nonbloody diarrhea and having had a colonoscopy in [place] last year, with unknown results. No recent wt loss, fever, chills, melena, hematochezia, hematemesis. He was noted to have a bili of 3.5 today, with mild transaminitis, mild elevation of lipase, nl WBC, neg UA, an ABD/Pelvis CT showing stones and sludge in gallbladder, nl bile ducts, cirrhotic liver, splenomegaly, portal lymphadenopathy, mild ascites; no evidence of biliary obstruction or acute cholecystitis. ABD US showed same biliary findings plus borderline dilated CBD. MRCP shows hepatic cirrhosis, splenomegaly, mild ascites, no evidence of acute cholecystitis or common duct obstruction or dilatation. Surgical consultation was requested regarding possible need for cholecystectomy. Pt continues to report mild diffuse abdominal pain and nausea. History - Past Medical History Cardiovascular: reports: None Respiratory: reports: None Endocrine/Autoimmune: reports: Type 2 diabetes, HyPERthyroidism, Other (hypercalcemia) GI: reports: GERD, Chronic diarrhea, Hepatitis, Cirrhosis, Diverticulitis, Other Musculoskeletal: reports: Chronic back pain MRSA Hx?: No - Past Surgical History General: reports: Appendectomy, Bowel surgery (what sounds like GABRIELLE for SBO) Ortho: reports: Spine surgery - Family & Social History Living arrangement: At home - Substance History Use: Uses substance without health or social issues: Tobacco Abuse: Recurrent use of substance despite neg consequences: Alcohol Abuse Issues: Other (hepatic cirrhosis) Tobacco Details: Cigarettes - POLST Patient has POLST: No Meds/Allgy - Home Medications Home Medications: Ambulatory Orders Medication Instructions Recorded Confirmed Amlodipine Besylate 10 mg PO DAILY 06/25/18 06/25/18 Guaifenesin/Dextromethorphan [Qc 118 ml PO DAILY 06/25/18 06/25/18 Tussin Dm Liquid] Metoprolol Succinate 50 mg PO DAILY 06/25/18 06/25/18 Pantoprazole [Protonix] 40 mg PO DAILY 06/25/18 06/25/18 QUEtiapine [SEROquel] 50 mg PO QPM 06/25/18 06/25/18 Trazodone HCl 100 mg PO DAILY 06/25/18 06/25/18 chlordiazePOXIDE [Librium] 25 - 50 mg PO Q6H PRN #20 capsule 10/19/18 - Allergies Allergies/Adverse Reactions: Allergies Allergy/AdvReac Type Severity Reaction Status Date / Time No Known Drug Allergies Allergy Verified 10/19/18 13:46 Review of Systems - Constitutional Constitutional: reports: Malaise, Weakness, Poor appetite. denies: Weight gain, Weight loss - Gastrointestinal Gastrointestinal: reports: Abdominal pain, Diarrhea, Nausea, Reflux/heartburn, Poor appetite. denies: Change in bowel habits, Rectal bleeding, Black stools, Vomiting, Coffee grounds emesis - Hematologic/Lymphatic Hematologic/Lymphatic: denies: Bruising, Blood clots, Bleeding tendencies - All Other Systems All Other Systems: reports: Reviewed and negative (or covered in HPI/PMH) Exam - Vital Signs Reviewed Vital Signs: Yes Vital Signs: Vital Signs x48h Pulse Resp BP Pulse Ox 03/14/19 11:00 101 H 15 139/78 H 94 03/14/19 09:00 100 13 121/78 93 03/14/19 07:08 105 H 17 129/73 94 - Physical Exam General Appearance: positive: Alert, Mild distress Eyes Bilateral: positive: Normal inspection, Conjunctivae nml, No scleral icterus ENT: positive: ENT inspection nml, Pharynx nml, No signs of dehydration Neck: positive: Trachea midline. negative: Lymphadenopathy (R), Lymphadenopathy (L) Respiratory: positive: Chest non-tender, No respiratory distress, Breath sounds nml Cardiovascular: positive: Regular rate & rhythm, No murmur, No gallop Abdomen: positive: No organomegaly, Nml bowel sounds, No distention (obese, unclear if distention present), Guarding (mild diffuse guarding but no peritoneal signs), Other (midline surgical scar; reducible nontender umbilical hernia). negative: Hepatomegaly, Splenomegaly, Mass Skin: positive: Color nml, No rash, Warm, Dry. negative: Cyanosis Extremities: positive: No pedal edema. negative: Calf tenderness Neurologic/Psychiatric: positive: Oriented x3 Conclusion/Plan - Diagnosis Diagnosis: Abd pain of unclear etiology; ddx includes acute alcoholic pancreatitis, alcoholic hepatitis, and biliary colic(doubt); no evidence of acute cholecystitis, cholangitis, biliary obstruction. His cholelithiasis may be asymptomatic. He is at high risk for surgery given his cirrhosis, splenomegaly, and ascites. - Plan Plan: I do not believe surgery is indicated at this time for his cholelithiasis. Recommend hospitalist consultation for further medical evaluation of his multiple medical problems. Discussed in detail with Dr. Meyer. Thanks, - Lab Results Fish Bones: 03/14/19 01:25 03/14/19 01:25 Other Lab Results: See HPI - Diagnostic Imaging Results Diagnostic Imaging Results: positive: Final report reviewed Diagnostic Imaging Results Comments: SEE HPI
--- NOTE | 2019-03-14 16:17 | ED Physician Documentation ---
ED Addendum - Addendum Addendum: 03/14/19 16:13 The patient's care was given over to me after the morning shift. The patient was to get an MRCP for evaluation of ductal blockage and there is consideration of gallstone pains. The patient did have his MRCP which did not show any ductal blockage and there is no signs of acute cholecystitis. He does have cholelithiasis. I contacted Dr. Benito who had been consulted by Dr. Luz from the ER earlier in the morning. He came to evaluate the patient and the feeling is less likely to be gallstone pain more likely the chronic mild pancreatitis and liver pain. The patient does see a liver specialist correction last marker and is being evaluated for the liver as well as concern for pancreatitis and has been evaluated for the hypercalcemia. Review of his medicine list showed that he apparently does take a pravastatin and vitamin D and he should review those and discontinue those if he does as it can be causing elevation of his liver and pancreas enzymes and the vitamin D could elevate the calcium. Otherwise we can treat the patient with some nausea and pain medicines and have him follow-up with his primary care and last marker. Discharge diagnoses #1 upper abdominal pain #2 chronic pancreatitis #3 elevated liver enzymes #4 hypercalcemia #5 alcoholism Disposition the patient is discharged home stable.
[2019-03-14 16:56] VITALS: BP 145/81
== END 2019-03-14 17:02 | disposition home or self-care (01) ==
LOC: EDUNIT# → ED 01:08
DX: R10.13 Epigastric pain (principal); E86.0 Dehydration; K86.0 Alcohol-induced chronic pancreatitis; K70.31 Alcoholic cirrhosis of liver with ascites; B19.20 Unspecified viral hepatitis C without hepatic coma; F10.288 Alcohol dependence with other alcohol-induced disorder; K80.20 Calculus of gallbladder without cholecystitis without obstruction; E83.52 Hypercalcemia; R74.8 Abnormal levels of other serum enzymes; E11.9 Type 2 diabetes mellitus without complications; F17.210 Nicotine dependence, cigarettes, uncomplicated
CPT/HCPCS: 36415; 74177; 74183; 76705; 80053; 80320; 81001; 83690; 85025; 96361; 96365; 96366; 96367; 96368; 96375; 96376; 99284; 99285; A9270; A9585; J1170; J3411; J7040; Q9967; 81003; 87086

== ENCOUNTER 2019-05-02 14:33 | Outpatient (CLI) | payer MEDICAID ==
[2019-05-02 17:37] LABS: CREATININE,URINE 98.8 mg/dL; PROTEIN/CREATININE RATIO,URINE 0.2 (<=0.2)
== END 2019-05-02 14:34 | disposition home or self-care (01) ==
LOC: LAB.S 14:33
PROVIDERS: ATTEND Internal Medicine Nephrology
DX: R80.9 Proteinuria, unspecified (principal)
CPT/HCPCS: 82570; 84156

== ENCOUNTER 2019-05-15 03:20 | Outpatient (CLI) | payer MEDICAID | END 2019-05-15 03:21 | disposition EMS.NT | LOC: EMS 03:20 | PROVIDERS: ATTEND Surgery | DX: R45.851 Suicidal ideations (principal) ==

== ENCOUNTER 2019-05-15 04:38 | Emergency (ER) | payer MEDICAID ==
[2019-05-15 05:25] LABS: BASOPHILS # (AUTO) 0.1 10^3/uL (0.0-0.1); BASOPHILS % (AUTO) 0.8 %; EOSINOPHILS # (AUTO) 0.5 10^3/uL (0.0-0.7); EOSINOPHILS % (AUTO) 5.1 %; HGB - HEMOGLOBIN 13.8 g/dL (14.0-18.0); LYMPHOCYTES # (AUTO) 3.7 10^3/uL (1.5-3.5); LYMPHOCYTES % (AUTO) 39.3 %; MEAN CORPUSCULAR HEMOGLOBIN 33.4 pg (27.0-31.0); MEAN CORPUSCULAR HGB CONC 33.3 g/dL (32.0-36.0); MEAN CORPUSCULAR VOLUME 100.2 fL (80.0-94.0); MEAN PLATELET VOLUME 10.4 fL (7.4-11.4); MONOCYTES # (AUTO) 0.9 10^3/uL (0.0-1.0); MONOCYTES % (AUTO) 9.7 %; NEUTROPHILS # (AUTO) 4.2 10^3/uL (1.5-6.6); NEUTROPHILS % (AUTO) 44.8 %; PLT - PLATELET COUNT 124 10^3/uL (130-450); RED BLOOD COUNT 4.13 10^6/uL (4.70-6.10); RED CELL DISTRIBUTION WIDTH 14.3 % (12.0-15.0); WHITE BLOOD COUNT 9.5 x10^3/uL (4.8-10.8)
[2019-05-15 05:41] LABS: ACETAMINOPHEN < 10 ug/mL (10-30); ALBUMIN/GLOBULIN RATIO 0.8 (1.0-2.2); ALKALINE PHOSPHATASE 85 IU/L (42-121); ALT ALANINE AMINOTRANSFERASE 21 IU/L (10-60); AST ASPARTATE AMINOTRANSFERASE 43 IU/L (10-42); BUN - BLOOD UREA NITROGEN 13 mg/dL (6-20); CALCIUM 11.1 mg/dL (8.5-10.3); CARBON DIOXIDE - CO2 22 mmol/L (21-32); CHLORIDE 108 mmol/L (101-111); CREATININE 0.8 mg/dL (0.6-1.2); GFR - MDRD 98 (>89); GLUCOSE 118 mg/dL (70-100); LIPASE 194 U/L (22-51); SALICYLATE < 6.0 mg/dL; SODIUM 143 mmol/L (135-145)
[2019-05-15] MEDS ORDERED: OLANZapine 10 MG VIAL IM STA (06:19)
--- NOTE | 2019-05-15 06:41 | ED Physician Documentation ---
PD HPI MHE - Stated complaint Stated Complaint: SI - Chief complaint Chief Complaint: MHE - History obtained from History obtained from: Patient, Police - History of Present Illness Primary symptom: Suicidal ideation Timing - onset: Today Contributing factors: Substance abuse - ETOH Similar symptoms before: Diagnosis (SI) Recently seen: Emergency Dept - Additional information Additional information: 63-year-old alcoholic male with a history of hepatitis C was drinking at home this evening when he became suicidal and he had a gun at his table and called the police. Police and brought the patient to the emergency department on an involuntary hold with a loaded gun in his home. The patient is a poor historian with a blood alcohol over of over 400. He does indicate that he has had suicidal ideation most of his life and he has not sought counseling for this. He has never been hospitalized for this. He does drink heavily. He states of the last time he was sober was for treatment of his hepatitis C. The patient was recently in the emergency department with abdominal pain and a picture of obstruction. An MRCP was obtained which did not demonstrate the obstruction and he was discharged to home he has not followed up. He does have a history of gallstones. Review of Systems Constitutional: denies: Fever Eyes: denies: Decreased vision Ears: denies: Ear pain Nose: denies: Congestion Throat: denies: Sore throat Cardiac: denies: Chest pain / pressure, Palpitations Respiratory: denies: Dyspnea, Cough GI: reports: Abdominal Pain, Diarrhea : denies: Dysuria, Frequency Skin: denies: Rash Musculoskeletal: denies: Neck pain, Back pain, Extremity pain PD PAST MEDICAL HISTORY - Past Medical History Cardiovascular: None Respiratory: None Endocrine/Autoimmune: Type 2 diabetes, HyPERthyroidism, Other (hypercalcemia) GI: GERD, Chronic diarrhea, Hepatitis, Cirrhosis, Diverticulitis, Other Musculoskeletal: Chronic back pain - Past Surgical History Past Surgical History: Yes General: Appendectomy, Bowel surgery (what sounds like GABRIELLE for SBO) Ortho: Spine surgery - Present Medications Home Medications: Ambulatory Orders Medication Instructions Recorded Confirmed Amlodipine Besylate 10 mg PO DAILY 06/25/18 06/25/18 Pantoprazole [Protonix] 40 mg PO BID 06/25/18 06/25/18 QUEtiapine [SEROquel] 50 mg PO QPM 06/25/18 05/15/19 Trazodone HCl 100 mg PO DAILY 06/25/18 06/25/18 LORazepam [Ativan] 1 mg PO Q6H PRN #15 tablet 03/14/19 Promethazine [Phenergan] 25 mg PO Q8H PRN #30 tab 03/14/19 05/15/19 Cetirizine [ZyrTEC] 1 tab DAILY 05/15/19 05/15/19 Cholecalciferol (Vitamin D3) 05/15/19 [Vitamin D3] Dicyclomine [Bentyl] 2 cap TID PRN 05/15/19 05/15/19 Lisinopril 1 tab DAILY 05/15/19 05/15/19 Loperamide [Imodium] 1 tab TID PRN 05/15/19 05/15/19 Magnesium Oxide [Magnesium] 05/15/19 Potassium Chloride 10 mg DAILY 05/15/19 05/15/19 Pravastatin [Pravachol] 2 tab DAILY 05/15/19 05/15/19 Promethazine [Phenergan] 1 tab Q8HR 05/15/19 05/15/19 Sildenafil Citrate [Sildenafil] 1 tab PRN 05/15/19 Thiamine HCl [Vitamin B-1] 05/15/19 - Allergies Allergies/Adverse Reactions: Allergies Allergy/AdvReac Type Severity Reaction Status Date / Time No Known Drug Allergies Allergy Verified 10/19/18 13:46 - Social History Does the pt smoke?: Yes Smoking Status: Current every day smoker Does the pt drink ETOH?: Yes Does the pt have substance abuse?: No - Immunizations Immunizations are current?: Yes - POLST Patient has POLST: No PD ED PE NORMAL - Vitals Vital signs reviewed: Yes (hypertensive and tachypneic) - General General: No acute distress, Well developed/nourished, Other (The patient is slurring his speech ) - HEENT HEENT: Atraumatic, PERRL, EOMI, Other (dry mucous membranes ) - Neck Neck: Supple, no meningeal sign, No bony TTP - Cardiac Cardiac: RRR, No murmur - Respiratory Respiratory: No respiratory distress, Clear bilaterally - Abdomen Abdomen: Soft, Non tender - Back Back: No CVA TTP, No spinal TTP - Derm Derm: Normal color, Warm and dry, No rash - Extremities Extremities: No deformity, No edema - Neuro Neuro: Alert and oriented X 3, pheresis specialist 2-12 intact, No motor deficit, No sensory deficit, Normal speech Eye Opening: Spontaneous Motor: Obeys Commands Verbal: Oriented GCS Score: 15 - Psych Psych: Normal mood, Normal affect Results - Vitals Vitals: Vital Signs - 24 hr 05/15/19 04:53 Temperature 36.6 C Heart Rate 93 Respiratory 26 H Rate Blood Pressure 168/90 H O2 Saturation 93 Oxygen O2 Source Room air - Labs Labs: Laboratory Tests 05/15/19 05/15/19 05/15/19 05:20 05:20 05:20 WBC 9.5 RBC 4.13 L Hgb 13.8 L Hct 41.4 L MCV 100.2 H MCH 33.4 H MCHC 33.3 RDW 14.3 Plt Count 124 L MPV 10.4 Neut # (Auto) 4.2 Lymph # (Auto) 3.7 H [place] # (Auto) 0.9 Eos # (Auto) 0.5 Baso # (Auto) 0.1 Absolute Nucleated RBC 0.00 Nucleated RBC % 0.0 Sodium 143 Potassium 3.7 Chloride 108 Carbon Dioxide 22 Anion Gap 13.0 BUN 13 Creatinine 0.8 Estimated GFR (MDRD) 98 Glucose 118 H Calcium 11.1 H Total Bilirubin 1.0 AST 43 H ALT 21 Alkaline Phosphatase 85 Total Protein 9.0 H Albumin 4.0 Globulin 5.0 H Albumin/Globulin Ratio 0.8 L Lipase 194 H TSH 3.97 Salicylates < 6.0 Acetaminophen < 10 L Ethyl Alcohol 403.1 PD MEDICAL DECISION MAKING - ED course Complexity details: reviewed old records, reviewed results, re-evaluated patient, considered differential, d/w patient ED course: 63-year-old male with history of alcoholism called 911 today when he had a gun on his lap intoxicated in his home feeling suicidal. The patient is requesting help and his blood alcohol is over 400. Here in the emergency department he is administered Zyprexa 10 mg IM to await his blood alcohol level reduction. At shift change his care is turned over to Dr. Garcia.
[2019-05-15 13:29] LABS: MUDS CUTOFF CONCENTRATIONS CUTOFF CONC BELOW:
[2019-05-15 13:33] LABS: BILIRUBIN,URINE NEGATIVE (NEGATIVE); GLUCOSE, URINE (UA) NEGATIVE (NEGATIVE); KETONES,URINE (UA) NEGATIVE (NEGATIVE); LEUKOCYTE ESTERASE, URINE NEGATIVE (NEGATIVE); NITRITE,URINE NEGATIVE (NEGATIVE); OCCULT BLOOD,URINE TRACE-INTA (NEGATIVE); PH,URINE 5.5 PH (5.0-7.5); PROTEIN,URINE 30 mg/dL (NEGATIVE); UROBILINOGEN,URINE 2 E.U./dL (NORMAL)
[2019-05-15 13:36] LABS: CLARITY,URINE CLEAR (CLEAR)
[2019-05-15 13:43] LABS: AMPHETAMINE SCREEN,URINE NEGATIVE (NEGATIVE); BENZODIAZEPINES SCREEN, URINE NEGATIVE (NEGATIVE); COCAINE SCREEN URINE NEGATIVE (NEGATIVE); METHADONE SCREEN, URINE NEGATIVE (NEGATIVE); METHAMPHETAMINES SCREEN, URINE NEGATIVE (NEGATIVE); OPIATE SCREEN, URINE NEGATIVE (NEGATIVE); OXYCODONE SCREEN, URINE NEGATIVE (NEGATIVE); PROPOXYPHENE SCREEN, URINE NEGATIVE (NEGATIVE); TRICYCLIC ANTIDEPRESSANT,URINE NEGATIVE (NEGATIVE)
[2019-05-15 13:54] LABS: BACTERIA,URINE Few /HPF (None Seen); CASTS, URINE 11-25 Hyaline Casts /LPF; RBC,URINE 0-5 /HPF (0-5); SQUAMOUS EPITHELIAL CELL,UR MOD Squamous (<= Few)
[2019-05-15] MEDS ORDERED: LORazepam 1 MG TABLET PO STA (19:52)
--- NOTE | 2019-05-15 19:54 | ED Physician Documentation ---
ED Addendum - Addendum Addendum: 05/15/19 19:53 Signed out to me by Dr. Garcia. Briefly this is a 63-year-old gentleman who came in overnight with an alarmingly high alcohol level and brandishing a gun with intent to hurt himself. He has been cooperative here. I recommended a DCR consult, given that he is very high risk for suicide given male gender, elderly age, and access to firearms. Per report from the nurse DCR refused to see him since he is voluntary. We will put him in line for tele-psychiatry consult ation. I do not think he would be dischargeable though under the circumstances. 05/15/19 22:48 Tele-psychiatry consultation ongoing. Care to Dr. Mcguire at shift change.
--- NOTE | 2019-05-15 22:59 | TELEPSYCH PHYS NOTE ---
Telepsych Note - CHIEF COMPLAINT/HX OF PRESENT ILLNESS Cheif Complaint and History of Present Illness: Name: David Ash : 57. 63M Date: 05/16/19 Location of patient: Last ED Time: 1:30am Location of doctor: [facility] This evaluation was conducted via telepsychiatry with the assistance of onsite staff Chief Complaint: SI/Depression/ETOH History of Present Illness: Pt seen by televideo with help from the onsite staff. Pt is a 63 yo male who reports a hx of depression and ETOH abuse. Pt presented to the ED, BIB police after the pt called them indicating that he was suicidal and had a gun. Apparently when the police arrived to his home he brandished his gun. On arrival to the ED his BAL was noted to be extremely high at over 400. Once clinically sober, he was re-evaluated by the ED staff who report that the pt continued to endorse significant depression, SI and was requesting help. Pt seen and evaluated. Pt reports an approximate 3 week period of worsening depressive sxs. Cites sxs inclusive of pervasive depressed mood, poor sleep, decreased appetite. Feelings of worthlessness. Pt notes over the past few days with increased thoughts of suicide. States he has experienced Si in the past on and off however has never acted on it. States he does recall telling the police that he was suicidal and that he had his guns out. He states he was not holding the gun upon police arrival to his home. Per chart, it indicates that the pt was brandishing a gun. He appears to be minimizing at this point. States he has things to do and that he will just will go home and attend a AA meeting. States he is fine with his psychiatric medications. On ROS, pt denies AVHs, delusions nor HI. Pt notes ongoing SI. In terms of risks, pt is a high risk of suicide, white single older male, access to guns, had plan and means. Also with substance abuse hx. Pt presents as a danger to himself requiring acute inpt psychiatric admission for safety, stabilization and treatment. Pt is NOT voluntary for inpt treatment. Collateral: Discussed case with staff and chart review. SI: prior ideation, reports no attempts. . HI/Violence: Denies HI. Trauma history: none reported Access to weapons: yes, reports he owns a handgun and 2 shotguns. Reports the police took them. Legal: denes Psychiatric History/Treatment History: previous inpt admissions. .Reports he is current Rxed antidepressant by his PCP. Drug/Alcohol History: EToh Medical History: HTN Medications & Freq: see chart Allergies: NKDA Sleep: decreased Family Psych History/History of suicide none reported . Social History: lives alone, employed. Supports: none identified MSE: Appearance and attire: hospital attire Attitude and behavior: guarded Affect and mood: depressed/constricted Association and thought processes: minimizing Thought content: Denies delusions. Deneis HI. Reports SI no intent however earlier had guns out with SI and reported to police desire to end his life. Perception: denies AVHs. Sensorium, memory, and orientation: AxOx3 Intellectual functioning: unable to assess Insight and judgment: impaired - SI/HI/SELF HARM SI/HI/SELF HARM (CURRENT OR HISTORY OF):: SI - PSYCHIATRIC HX/TREATMENT HX Psychiatric: Depression - DRUG/ALCOHOL HX ETOH Use: Liquor - MEDICAL HX Does the pt have a hx of MRSA?: No Cardiovascular: Hypertension Respiratory: None Endocrine/Autoimmune: Type 2 diabetes, HyPERthyroidism, Other (hypercalcemia) Gastrointestinal: GERD, Chronic diarrhea, Hepatitis, Cirrhosis, Diverticulitis, Other Musculoskeletal: Chronic back pain - SURGICAL HX General: Appendectomy, Bowel surgery (what sounds like GABRIELLE for SBO) Orthopedic: Spine surgery - HOME MEDICATIONS Home Meds (as last confirmed): Patient History Medication Instructions Recorded Confirmed Amlodipine Besylate 10 mg PO DAILY 06/25/18 06/25/18 Pantoprazole [Protonix] 40 mg PO BID 06/25/18 06/25/18 QUEtiapine [SEROquel] 50 mg PO QPM 06/25/18 05/15/19 Trazodone HCl 100 mg PO DAILY 06/25/18 06/25/18 Cetirizine [ZyrTEC] 1 tab DAILY 05/15/19 05/15/19 Cholecalciferol (Vitamin D3) 05/15/19 [Vitamin D3] Dicyclomine [Bentyl] 2 cap TID PRN 05/15/19 05/15/19 Lisinopril 1 tab DAILY 05/15/19 05/15/19 Loperamide [Imodium] 1 tab TID PRN 05/15/19 05/15/19 Magnesium Oxide [Magnesium] 05/15/19 Potassium Chloride 10 mg DAILY 05/15/19 05/15/19 Pravastatin [Pravachol] 2 tab DAILY 05/15/19 05/15/19 Promethazine [Phenergan] 1 tab Q8HR 05/15/19 05/15/19 Sildenafil Citrate [Sildenafil] 1 tab PRN 05/15/19 Thiamine HCl [Vitamin B-1] 05/15/19 - ALLERGIES Allergies (as last confirmed): Allergies Allergy/AdvReac Type Severity Reaction Status Date / Time No Known Drug Allergies Allergy Verified 10/19/18 13:46 - TREATMENT/PHARMACOLOGICAL RECOMMENDATION Treatment - Pharmacological - Therapy Recommendations: Diagnosis: Unspecified Depressive Disorder , Alcohol Use Disorder, severe. Assessment/Risk Assessment: 19 yo female with hx of depression, SI and prior hx of attempts via overdose. Pt presented to the ED reporting SI and specific plan to overdose on her mothers pills. This in the context of multiple stressors, poor coping and non compliance with treatment/medications. Currently denies SI however appears to be minimizing. Admits there has been no resolution to any of her stressors. She presents with multiple risk factors and needs inpt stabilization. Recommendations: Pt requires acute inpt psychiatric admission For safety, stabilization and treatment LJ, dual diagnosis unit if available Pt is NOT voluntary for inpt treatment and requires involuntary commitment. Pt should be placed on 1:1 for safety and elopement risk. Start Zoloft 50mg po Daily Continue Trazodone 100mg po HS and Seroquel 50mg po HS - TIME SPENT & PROVIDER LOCATION Telepsych consultation conducted via videoconferencing: Yes List names and roles of persons who participated in consult: geetha ash Telepsych Provider Location: [place] Time Telepsych consult began: 01:30 Time Telepsych consult completed: 01:45
[2019-05-15] MEDS ORDERED: diazePAM 5 MG TABLET PO STA (23:54)
[2019-05-16] MEDS ORDERED: LOPERAMIDE 2 MG CAPSULE PO STA (02:26)
[2019-05-16] MEDS ORDERED: ACETAMINOPHEN 325 MG TABLET PO STA (03:39)
[2019-05-16 06:22] VITALS: BP 160/85
--- NOTE | 2019-05-16 06:42 | ED Physician Documentation ---
ED Addendum - Addendum Addendum: This is a 63-year-old male who was signed out to me from Dr. Higuera, he arrived with a high alcohol level, and he had brandished a gun with an intent to hurt himself, he has been cooperative throughout my shift, he had a evaluation by telepsych who Recommended inpatient care. A bed was found for him with Dr. Bakari Castro [facility] accepting. He was signed out to me as medically cleared, he does have an elevated lipase of 190, but on my repeat examination he is tolerating p.o., is not vomiting, has a soft and non-tender abdomen, and his lipase is chronically elevated on past ED visits, he is well-appearing without new complaints and appears appropriate for inpatient psychiatric care at this time. I did give him 1 dose of loperamide and Valium for his diarrhea and withdrawal symptoms greatly. At the end of my shift he was awaiting transportation To [facility], [facility]. Departure - Departure Disposition: 65 Psych Hosp/Unit DC/Xfer Clinical Impression: Depression Qualifiers: Depression Type: unspecified Qualified Code(s): F32.9 - Major depressive disorder, single episode, unspecified Alcohol withdrawal syndrome Qualifiers: Complication of substance-induced condition: with unspecified complication Qualified Code(s): F10.239 - Alcohol dependence with withdrawal, unspecified Condition: Good Discharge Date/Time: 05/16/19 09:44
== END 2019-05-16 09:44 ==
LOC: EDUNIT# → ED 04:38
DX: F32.9 Major depressive disorder, single episode, unspecified (principal); R45.851 Suicidal ideations; F10.229 Alcohol dependence with intoxication, unspecified; Y90.8 Blood alcohol level of 240 mg/100 ml or more; F10.239 Alcohol dependence with withdrawal, unspecified; R19.7 Diarrhea, unspecified; B19.20 Unspecified viral hepatitis C without hepatic coma; K70.30 Alcoholic cirrhosis of liver without ascites; K80.20 Calculus of gallbladder without cholecystitis without obstruction; I10 Essential (primary) hypertension; E11.9 Type 2 diabetes mellitus without complications; F17.200 Nicotine dependence, unspecified, uncomplicated
CPT/HCPCS: 36415; 80053; 80306; 80307; 80320; 80329; 81001; 83690; 84443; 85025; 96372; 99284; 99285; A9270; J8499; 81003; 87086

== ENCOUNTER 2020-04-19 20:15 | Emergency (ER) | payer MEDICAID ==
[2020-04-19 21:08] LABS: BASOPHILS # (AUTO) 0.1 10^3/uL (0.0-0.1); BASOPHILS % (AUTO) 0.7 %; EOSINOPHILS # (AUTO) 0.7 10^3/uL (0.0-0.7); EOSINOPHILS % (AUTO) 5.5 %; HGB - HEMOGLOBIN 14.7 g/dL (14.0-18.0); LYMPHOCYTES # (AUTO) 2.5 10^3/uL (1.5-3.5); LYMPHOCYTES % (AUTO) 20.7 %; MEAN CORPUSCULAR HEMOGLOBIN 33.9 pg (27.0-31.0); MEAN CORPUSCULAR HGB CONC 35.3 g/dL (32.0-36.0); MEAN CORPUSCULAR VOLUME 96.1 fL (80.0-94.0); MEAN PLATELET VOLUME 10.6 fL (7.4-11.4); MONOCYTES # (AUTO) 1.1 10^3/uL (0.0-1.0); MONOCYTES % (AUTO) 8.8 %; NEUTROPHILS # (AUTO) 7.8 10^3/uL (1.5-6.6); NEUTROPHILS % (AUTO) 63.6 %; PLT - PLATELET COUNT 145 10^3/uL (130-450); RED BLOOD COUNT 4.34 10^6/uL (4.70-6.10); RED CELL DISTRIBUTION WIDTH 13.8 % (12.0-15.0); WHITE BLOOD COUNT 12.3 x10^3/uL (4.8-10.8)
[2020-04-19 21:10] LABS: GLUCOSE, URINE (UA) NEGATIVE (NEGATIVE); KETONES,URINE (UA) TRACE mg/dL (NEGATIVE); LEUKOCYTE ESTERASE, URINE NEGATIVE (NEGATIVE); NITRITE,URINE NEGATIVE (NEGATIVE); OCCULT BLOOD,URINE SMALL (NEGATIVE); PROTEIN,URINE 100 mg/dL (NEGATIVE); UROBILINOGEN,URINE 0.2 (NORMAL) E.U./dL (NORMAL)
[2020-04-19 21:18] LABS: BACTERIA,URINE Rare /HPF (None Seen); BILIRUBIN,URINE NEGATIVE (NEGATIVE); CLARITY,URINE CLEAR (CLEAR); ICTOTEST,URINE NEGATIVE; SQUAMOUS EPITHELIAL CELL,UR RARE Squamous (<= Few)
[2020-04-19 21:21] LABS: ALBUMIN 4.3 g/dL (3.2-5.5); ALBUMIN/GLOBULIN RATIO 0.9 (1.0-2.2); BILIRUBIN,TOTAL 0.6 mg/dL (0.2-1.0); CALCIUM 11.3 mg/dL (8.5-10.3); CREATININE 1.1 mg/dL (0.6-1.2); TOTAL PROTEIN 8.9 g/dL (6.7-8.2)
[2020-04-19] MEDS ORDERED: MAG HYDROX/AL HYDROX/SIMETH 30 ML UDC PO STA (21:33)
[2020-04-19] MEDS ORDERED: PANTOPRAZOLE 40 MG VIAL IVP STA (21:33)
[2020-04-19] MEDS ORDERED: FOLIC ACID INJ 1 MG, THIAMINE INJ 100 MG, MAGNESIUM SULFATE 2 GM, MULTIVITAMIN 10 ML in... IV STA ×5 (21:33)
[2020-04-19] MEDS ORDERED: LIDOCAINE VISCOUS 2% 15 ML UDC MM STA (21:33)
--- NOTE | 2020-04-19 21:37 | ED Physician Documentation ---
PD HPI NVD - Stated complaint Stated Complaint: ABD PX - Chief complaint Chief Complaint: Abd Pain - History obtained from History obtained from: Patient - History of Present Illness Timing - onset: How many days ago (10) Timing - duration: Days (10) Timing - details: Abrupt onset, Still present Associated symptoms: Abdominal pain Contributing factors: Alcohol use, Other (out of pantoprizol) Improved by: Vomiting Worsened by: Eating Similar symptoms before: Diagnosis (ulcer, gastritis) Recently seen: Not recently seen - Additonal information Additional information: 64-year-old alcoholic male has developed nausea and vomiting and epigastric pain since running out of his pantoprazole. Review of Systems Constitutional: denies: Fever Eyes: denies: Decreased vision Ears: denies: Ear pain Nose: denies: Rhinorrhea / runny nose, Congestion Throat: denies: Sore throat Cardiac: denies: Chest pain / pressure, Palpitations, Pedal edema, Calf pain Respiratory: denies: Dyspnea, Cough, Wheezing GI: reports: Abdominal Pain, Abdominal Swelling, Nausea, Vomiting : denies: Dysuria, Frequency Skin: denies: Rash Musculoskeletal: denies: Neck pain, Back pain, Extremity pain Neurologic: denies: Generalized weakness, Focal weakness, Numbness PD PAST MEDICAL HISTORY - Past Medical History Past Medical History: Yes Cardiovascular: Hypertension Respiratory: None Endocrine/Autoimmune: Type 2 diabetes, HyPERthyroidism, Other GI: GERD, Chronic diarrhea, Hepatitis, Cirrhosis, Diverticulitis, Other Psych: Depression Musculoskeletal: Chronic back pain - Past Surgical History Past Surgical History: Yes General: Appendectomy, Bowel surgery Ortho: Spine surgery - Present Medications Home Medications: Ambulatory Orders Medication Instructions Recorded Confirmed Amlodipine Besylate 10 mg PO DAILY 06/25/18 06/25/18 Pantoprazole [Protonix] 40 mg PO BID 06/25/18 06/25/18 QUEtiapine [SEROquel] 50 mg PO QPM 06/25/18 05/15/19 Trazodone HCl 100 mg PO DAILY 06/25/18 06/25/18 LORazepam [Ativan] 1 mg PO Q6H PRN #15 tablet 03/14/19 Promethazine [Phenergan] 25 mg PO Q8H PRN #30 tab 03/14/19 05/15/19 Cetirizine [ZyrTEC] 1 tab DAILY 05/15/19 05/15/19 Cholecalciferol (Vitamin D3) 05/15/19 [Vitamin D3] Dicyclomine [Bentyl] 2 cap TID PRN 05/15/19 05/15/19 Loperamide [Imodium] 1 tab TID PRN 05/15/19 05/15/19 Magnesium Oxide [Magnesium] 05/15/19 Potassium Chloride 10 mg DAILY 05/15/19 05/15/19 Pravastatin [Pravachol] 2 tab DAILY 05/15/19 05/15/19 Promethazine [Phenergan] 1 tab Q8HR 05/15/19 05/15/19 Sildenafil Citrate [Sildenafil] 1 tab PRN 05/15/19 Thiamine HCl [Vitamin B-1] 05/15/19 lisinopriL [Lisinopril] 1 tab DAILY 05/15/19 05/15/19 Pantoprazole [Protonix] 40 mg PO BID #40 tablet 04/20/20 Sucralfate [Carafate] 1 gm PO ACHS #60 tablet 04/20/20 - Allergies Allergies/Adverse Reactions: Allergies Allergy/AdvReac Type Severity Reaction Status Date / Time No Known Drug Allergies Allergy Verified 04/19/20 20:37 - Social History Does the pt smoke?: Yes Smoking Status: Current every day smoker Does the pt drink ETOH?: Yes Does the pt have substance abuse?: No - Immunizations Immunizations are current?: Yes - POLST Patient has POLST: No PD ED PE NORMAL - Vitals Vital signs reviewed: Yes (hypertensive) - General General: Alert and oriented X 3, No acute distress, Well developed/nourished - HEENT HEENT: Atraumatic, PERRL, EOMI - Neck Neck: Supple, no meningeal sign, No bony TTP - Cardiac Cardiac: RRR, No murmur - Respiratory Respiratory: No respiratory distress, Clear bilaterally - Abdomen Abdomen: Soft, Other (distended with tendereness to the LUQ that is mild and without garding ) - Back Back: No CVA TTP, No spinal TTP - Derm Derm: Normal color, Warm and dry, No rash - Extremities Extremities: No deformity, No edema - Neuro Neuro: Alert and oriented X 3, needle loom tender 2-12 intact, No motor deficit, No sensory deficit, Normal speech Eye Opening: Spontaneous Motor: Obeys Commands Verbal: Oriented GCS Score: 15 - Psych Psych: Normal mood, Normal affect Results - Vitals Vitals: Vital Signs - 24 hr 04/19/20 04/19/20 04/19/20 20:20 20:46 22:17 Temperature 36.8 C 36.8 C 37.3 C Heart Rate 99 97 86 Respiratory 18 22 20 Rate Blood Pressure 172/70 H 159/90 H 158/77 H O2 Saturation 99 100 98 04/19/20 04/20/20 04/20/20 23:37 02:03 02:37 Temperature 37.3 C 37.3 C Heart Rate 91 90 88 Respiratory 20 21 19 Rate Blood Pressure 147/85 H 161/79 H 158/66 H O2 Saturation 100 98 100 04/20/20 03:02 Temperature 37.3 C Heart Rate 88 Respiratory 19 Rate Blood Pressure 158/66 H O2 Saturation 100 Oxygen O2 Source Room air - Labs Labs: Laboratory Tests 04/19/20 04/19/20 04/19/20 20:17 20:53 20:53 WBC 12.3 H RBC 4.34 L Hgb 14.7 Hct 41.7 L MCV 96.1 H MCH 33.9 H MCHC 35.3 RDW 13.8 Plt Count 145 MPV 10.6 Neut # (Auto) 7.8 H Lymph # (Auto) 2.5 [place] # (Auto) 1.1 H Eos # (Auto) 0.7 Baso # (Auto) 0.1 Absolute Nucleated RBC 0.00 Nucleated RBC % 0.0 Sodium 136 Potassium 3.1 L Chloride 102 Carbon Dioxide 22 Anion Gap 12.0 BUN 26 H Creatinine 1.1 Estimated GFR (MDRD) 68 L Glucose 127 H Calcium 11.3 H Total Bilirubin 0.6 AST 25 ALT 22 Alkaline Phosphatase 92 Total Protein 8.9 H Albumin 4.3 Globulin 4.6 H Albumin/Globulin Ratio 0.9 L Lipase 128 H Urine Color YELLOW Urine Clarity CLEAR Urine pH 6.0 Ur Specific [place] 1.025 Urine Protein 100 H Urine Glucose (UA) NEGATIVE Urine Ketones TRACE Urine Occult Blood SMALL H Urine Nitrite NEGATIVE Urine Bilirubin NEGATIVE Urine Urobilinogen 0.2 (NORMAL) Ur Leukocyte Esterase NEGATIVE Urine RBC 6-10 H Urine WBC 0-3 Ur Squamous Epith Cells RARE Squamous Urine Bacteria Rare Ur Microscopic Review INDICATED Urine Culture Comments NOT INDICATED Ethyl Alcohol 04/19/20 20:53 WBC RBC Hgb Hct MCV MCH MCHC RDW Plt Count MPV Neut # (Auto) Lymph # (Auto) [place] # (Auto) Eos # (Auto) Baso # (Auto) Absolute Nucleated RBC Nucleated RBC % Sodium Potassium Chloride Carbon Dioxide Anion Gap BUN Creatinine Estimated GFR (MDRD) Glucose Calcium Total Bilirubin AST ALT Alkaline Phosphatase Total Protein Albumin Globulin Albumin/Globulin Ratio Lipase Urine Color Urine Clarity Urine pH Ur Specific [place] Urine Protein Urine Glucose (UA) Urine Ketones Urine Occult Blood Urine Nitrite Urine Bilirubin Urine Urobilinogen Ur Leukocyte Esterase Urine RBC Urine WBC Ur Squamous Epith Cells Urine Bacteria Ur Microscopic Review Urine Culture Comments Ethyl Alcohol < 5.0 Procedures - IVC sono (time) 2129 Bedside IVC sono: IVC measures (cm) (0.74), IVC collapsed c insp (cm) (complete), Dehydration (est 2+ liter deficit) PD MEDICAL DECISION MAKING - ED course Complexity details: reviewed old records, reviewed results, re-evaluated patient, considered differential, d/w patient ED course: 64-year-old alcoholic male with history of gastritis has developed abdominal pain worse after eating and he has had some vomiting associated with this. He feels that he is gotten somewhat dehydrated. He has had symptoms for about 2 weeks. He has run out of his pantoprazole and has not been taking it. He denies any alcohol withdrawal symptoms now. He believes he has been able to stay hydrated.Despite this she is found to be dehydrated and on interrogation the inferior vena cava and his ministered a banana bag as well as a GI cocktail consisting of viscous lidocaine and Mylanta which did provide some temporary relief. He was also administered Protonix intravenously. He was subsequently administered a dose of Carafate which also helped somewhat. He is diagnosed with gastritis and we will treat his gastritis. Departure - Departure Disposition: 01 Home, Self Care Clinical Impression: Gastritis Qualifiers: Gastritis type: alcoholic Chronicity: acute Gastritis bleeding: without bleeding Qualified Code(s): K29.20 - Alcoholic gastritis without bleeding Condition: Stable Instructions: ED PUD Vs Gastritis Follow-Up: ROSE ROGERS ARNP [Primary Care Provider] - Prescriptions: Sucralfate [Carafate] 1 gm PO ACHS #60 tablet Pantoprazole [Protonix] 40 mg PO BID #40 tablet Discharge Date/Time: 04/20/20 03:03
[2020-04-19] MEDS ORDERED: THIAMINE 100 MG/1 ML 2 ML MDV ONE (21:45)
[2020-04-19] MEDS ORDERED: FOLIC ACID 5 MG/1 ML 10ML MDV ONE (21:45)
[2020-04-19] MEDS ORDERED: MAGNESIUM SULFATE 1 GM/2 ML VIAL ONE (21:45)
[2020-04-20] MEDS ORDERED: SUCRALFATE 1 GM/10 ML UDC PO STA (02:10)
[2020-04-20 02:38] VITALS: BP 158/66
== END 2020-04-20 03:03 | disposition home or self-care (01) ==
LOC: ED 20:15
DX: K29.20 Alcoholic gastritis without bleeding (principal); F10.20 Alcohol dependence, uncomplicated; E86.0 Dehydration; I10 Essential (primary) hypertension; E11.9 Type 2 diabetes mellitus without complications
CPT/HCPCS: 36415; 80053; 80320; 81001; 83690; 85025; 96365; 96375; 99284; A9270; 81003; 85610; 87086

== ENCOUNTER 2020-08-30 09:02 | Emergency (ER) | payer MEDICAID ==
[2020-08-30] MEDS ORDERED: SODIUM CHLORIDE 0.9% 1,000 ML IV STA ×2 (09:36→10:07)
[2020-08-30 09:37] LABS: BASOPHILS # (AUTO) 0.1 10^3/uL (0.0-0.1); BASOPHILS % (AUTO) 0.5 %; EOSINOPHILS # (AUTO) 0.1 10^3/uL (0.0-0.7); EOSINOPHILS % (AUTO) 0.5 %; HCT - HEMATOCRIT 42.1 % (42.0-52.0); LYMPHOCYTES # (AUTO) 0.9 10^3/uL (1.5-3.5); LYMPHOCYTES % (AUTO) 5.3 %; MEAN CORPUSCULAR HEMOGLOBIN 34.2 pg (27.0-31.0); MEAN CORPUSCULAR HGB CONC 35.6 g/dL (32.0-36.0); MEAN CORPUSCULAR VOLUME 95.9 fL (80.0-94.0); MEAN PLATELET VOLUME 11.2 fL (7.4-11.4); MONOCYTES # (AUTO) 1.3 10^3/uL (0.0-1.0); MONOCYTES % (AUTO) 7.3 %; NEUTROPHILS # (AUTO) 14.9 10^3/uL (1.5-6.6); NEUTROPHILS % (AUTO) 86.1 %; PLT - PLATELET COUNT 172 10^3/uL (130-450); RED BLOOD COUNT 4.39 10^6/uL (4.70-6.10); RED CELL DISTRIBUTION WIDTH 13.1 % (12.0-15.0); WHITE BLOOD COUNT 17.3 x10^3/uL (4.8-10.8)
--- NOTE | 2020-08-30 09:38 | ED Physician Documentation ---
PD HPI GI BLEED - Stated complaint Stated Complaint: GI BLEED - Chief complaint Chief Complaint: Abd Pain - History obtained from History obtained from: Patient - History of Present Illness Timing - onset: Last night Timing - duration: Days (1) Timing - details: Abrupt onset Pain level max: 5 Pain level now: 3 Associated symptoms: Vomiting (x1, no blood), BRBPR. No: Coffee ground emesis, Hematemesis, Maroon stool, Black/tarry stool, Diarrhea, Constipation, Abdominal pain, Chest pain Contributing factors: Alcohol use. No: Sick contact, Bad food, Travel, Aspirin use, NSAID use, Stress Improved by: Other (nothing) Worsened by: Other (nothing) Similar symptoms before: Has not had sx before Recently seen: Not recently seen - Additional information Additional information: states bright red blood per rectum and diarrhea since last night. no fevers. no chills. drinks a half of a fifth of etoh per day. Review of Systems Ten Systems: 10 systems reviewed and negative Constitutional: denies: Fever, Chills Nose: denies: Rhinorrhea / runny nose, Congestion Respiratory: denies: Cough GI: denies: Nausea : denies: Dysuria, Frequency, Hesitancy Skin: denies: Rash Musculoskeletal: denies: Neck pain, Back pain Neurologic: denies: Headache PD PAST MEDICAL HISTORY - Past Medical History Cardiovascular: Hypertension Respiratory: None Endocrine/Autoimmune: Type 2 diabetes, HyPERthyroidism, Other GI: GERD, Chronic diarrhea, Hepatitis, Cirrhosis, Diverticulitis, Other Psych: Depression Musculoskeletal: Chronic back pain - Past Surgical History Past Surgical History: Yes General: Appendectomy, Bowel surgery Ortho: Spine surgery - Present Medications Home Medications: Ambulatory Orders Medication Instructions Recorded Confirmed Amlodipine Besylate 10 mg PO DAILY 06/25/18 06/25/18 Pantoprazole [Protonix] 40 mg PO BID 06/25/18 06/25/18 QUEtiapine [SEROquel] 50 mg PO QPM 06/25/18 05/15/19 Trazodone HCl 100 mg PO DAILY 06/25/18 06/25/18 LORazepam [Ativan] 1 mg PO Q6H PRN #15 tablet 03/14/19 Promethazine [Phenergan] 25 mg PO Q8H PRN #30 tab 03/14/19 05/15/19 Cetirizine [ZyrTEC] 1 tab DAILY 05/15/19 05/15/19 Cholecalciferol (Vitamin D3) 05/15/19 [Vitamin D3] Dicyclomine [Bentyl] 2 cap TID PRN 05/15/19 05/15/19 Loperamide [Imodium] 1 tab TID PRN 05/15/19 05/15/19 Magnesium Oxide [Magnesium] 05/15/19 Potassium Chloride 10 mg DAILY 05/15/19 05/15/19 Pravastatin [Pravachol] 2 tab DAILY 05/15/19 05/15/19 Promethazine [Phenergan] 1 tab Q8HR 05/15/19 05/15/19 Sildenafil Citrate [Sildenafil] 1 tab PRN 05/15/19 Thiamine HCl [Vitamin B-1] 05/15/19 lisinopriL [Lisinopril] 1 tab DAILY 05/15/19 05/15/19 Pantoprazole [Protonix] 40 mg PO BID #40 tablet 04/20/20 Sucralfate [Carafate] 1 gm PO ACHS #60 tablet 04/20/20 Amox/Clav 875/125 [Augmentin] 1 each PO Q8H #30 tablet 08/30/20 Ondansetron Odt [Zofran] 4 mg TL Q6H PRN #10 tablet 08/30/20 - Allergies Allergies/Adverse Reactions: Allergies Allergy/AdvReac Type Severity Reaction Status Date / Time No Known Drug Allergies Allergy Verified 04/19/20 20:37 - Social History Does the pt smoke?: Yes Smoking Status: Current every day smoker Does the pt drink ETOH?: Yes Does the pt have substance abuse?: No - Immunizations Immunizations are current?: Yes - POLST Patient has POLST: No PD ED PE NORMAL - Vitals Vital signs reviewed: Yes - General General: Alert and oriented X 3, No acute distress, Well developed/nourished - HEENT HEENT: PERRL, Moist mucous membranes - Neck Neck: Supple, no meningeal sign - Cardiac Cardiac: RRR, Strong equal pulses - Respiratory Respiratory: No respiratory distress, Clear bilaterally - Abdomen Abdomen: Soft, Non distended, Other (mild TTP LLQ and LUQ, no pertioneal signs.) - Rectal Rectal: Other (normal) - Derm Derm: Warm and dry - Extremities Extremities: No edema - Neuro Neuro: Alert and oriented X 3 - Psych Psych: Normal mood, Normal affect Results - Vitals Vitals: Vital Signs - 24 hr 08/30/20 08/30/20 09:14 11:29 Temperature 36.4 C L Heart Rate 111 H 107 H Respiratory 20 20 Rate Blood Pressure 143/73 H 164/76 H O2 Saturation 97 97 Oxygen O2 Source Room air - Labs Labs: Laboratory Tests 08/30/20 08/30/20 08/30/20 09:29 09:29 09:29 WBC 17.3 H RBC 4.39 L Hgb 15.0 Hct 42.1 MCV 95.9 H MCH 34.2 H MCHC 35.6 RDW 13.1 Plt Count 172 MPV 11.2 Neut # (Auto) 14.9 H Lymph # (Auto) 0.9 L [place] # (Auto) 1.3 H Eos # (Auto) 0.1 Baso # (Auto) 0.1 Absolute Nucleated RBC 0.00 Nucleated RBC % 0.0 PT 11.6 INR 1.0 APTT 32.3 Sodium 135 Potassium 3.3 L Chloride 103 Carbon Dioxide 18 L Anion Gap 14.0 H BUN 17 Creatinine 1.0 Estimated GFR (MDRD) 75 L Glucose 196 H Calcium 11.0 H Total Bilirubin 0.6 AST 34 ALT 24 Alkaline Phosphatase 91 Total Protein 8.0 Albumin 4.0 Globulin 4.0 Albumin/Globulin Ratio 1.0 Lipase 98 H Urine Color Urine Clarity Urine pH Ur Specific [place] Urine Protein Urine Glucose (UA) Urine Ketones Urine Occult Blood Urine Nitrite Urine Bilirubin Urine Urobilinogen Ur Leukocyte Esterase Ur Microscopic Review Urine Culture Comments Ethyl Alcohol Blood Type Antibody Screen 08/30/20 08/30/20 08/30/20 09:29 09:29 11:30 WBC RBC Hgb Hct MCV MCH MCHC RDW Plt Count MPV Neut # (Auto) Lymph # (Auto) [place] # (Auto) Eos # (Auto) Baso # (Auto) Absolute Nucleated RBC Nucleated RBC % PT INR APTT Sodium Potassium Chloride Carbon Dioxide Anion Gap BUN Creatinine Estimated GFR (MDRD) Glucose Calcium Total Bilirubin AST ALT Alkaline Phosphatase Total Protein Albumin Globulin Albumin/Globulin Ratio Lipase Urine Color YELLOW Urine Clarity CLEAR Urine pH 6.5 Ur Specific [place] 1.010 Urine Protein TRACE Urine Glucose (UA) NEGATIVE Urine Ketones NEGATIVE Urine Occult Blood TRACE-INTA Urine Nitrite NEGATIVE Urine Bilirubin NEGATIVE Urine Urobilinogen 0.2 (NORMAL) Ur Leukocyte Esterase NEGATIVE Ur Microscopic Review NOT INDICATED Urine Culture Comments NOT INDICATED Ethyl Alcohol 85.1 Blood Type A POSITIVE Antibody Screen NEGATIVE PD MEDICAL DECISION MAKING - ED course Complexity details: reviewed results, re-evaluated patient, considered differential, d/w patient ED course: Patient with colitis. We will place on antibiotics for home. Patient is well- appearing, nontoxic. Rectal bleeding should improve with the antibiotics. He states he had a normal colonoscopy within the last year. He was counseled regarding the pratik mass and the need for follow-up. Patient counseled regarding signs and symptoms for which I believe and urgent re-evaluation would be necessary. Patient with good understanding of and agreement to plan and is comfortable going home at this time This document was made in part using voice recognition software. While efforts are made to proofread this document, sound alike and grammatical errors may occur. IMPRESSION: 1. There is no CT evidence of acute diverticulitis or peridiverticular abscess. There is, however, generalized sigmoid and left colonic mural thickening in a pattern consistent with colitis. A colonic mass lesion is not found on the right or the left within the abdomen and the pelvis. 2. There is a retroperitoneal enlarged pratik mass at the inferior margin of the gallbladder fossa and the superior pancreatic head area. This has a likely malignant etiology, and may be related to a soft tissue radiodensity seen within the gallbladder lumen. Dedicated gallbladder ultrasound to differentiate between the gallbladder mucosal mass or low density gallstones is recommended. Additional enlarged nodes are present scattered in this area, further increasing the likelihood of neoplastic etiology. A pancreatic mass is not found. 3. There is no evidence of appendicitis but there is a thin band of radiodensity suggestive of an enteric staple line adjacent to the medial border of the cecum, perhaps reflecting prior appendectomy. Please correlate clinically. 4. Several scattered calcifications at the renal sinus margins bilaterally some of which appear to represent vascular calcifications and others may represent nonobstructive small collecting system calculi. Departure - Departure Disposition: 01 Home, Self Care Clinical Impression: Colitis, BRBPR (bright red blood per rectum) Condition: Good Instructions: ED Diverticulitis Follow-Up: Provider,Other [Primary Care Provider] - Within 1 week Prescriptions: Amox/Clav 875/125 [Augmentin] 1 each PO Q8H #30 tablet Ondansetron Odt [Zofran] 4 mg TL Q6H PRN #10 tablet PRN Reason: Nausea / Vomiting Comments: Take all antibiotics until gone. Follow-up with your doctor for further care. Return if you worsen. There are additional findings on your CT scan that will need further work-up by your doctor. There is a possible small mass near the gallbladder fossa. Is recommend that he have an ultrasound of this area. Your CT findings are below. Please take this to your doctor's appointment for appropriate follow-up. IMPRESSION: 1. There is no CT evidence of acute diverticulitis or peridiverticular abscess. There is, however, generalized sigmoid and left colonic mural thickening in a pattern consistent with colitis. A colonic mass lesion is not found on the right or the left within the abdomen and the pelvis. 2. There is a retroperitoneal enlarged pratik mass at the inferior margin of the gallbladder fossa and the superior pancreatic head area. This has a likely malignant etiology, and may be related to a soft tissue radiodensity seen within the gallbladder lumen. Dedicated gallbladder ultrasound to differentiate between the gallbladder mucosal mass or low density gallstones is recommended. Additional enlarged nodes are present scattered in this area, further increasing the likelihood of neoplastic etiology. A pancreatic mass is not found. 3. There is no evidence of appendicitis but there is a thin band of radiodensity suggestive of an enteric staple line adjacent to the medial border of the cecum, perhaps reflecting prior appendectomy. Please correlate clinically. 4. Several scattered calcifications at the renal sinus margins bilaterally some of which appear to represent vascular calcifications and others may represent nonobstructive small collecting system calculi. Discharge Date/Time: 08/30/20 12:33
[2020-08-30 09:44] LABS: PT - PROTHROMBIN TIME 11.6 secs (9.9-12.6)
[2020-08-30 09:50] LABS: BILIRUBIN,TOTAL 0.6 mg/dL (0.2-1.0); POTASSIUM 3.3 mmol/L (3.5-5.0)
[2020-08-30 09:51] LABS: PARTIAL THROMBOPLASTIN TIME 32.3 secs (24.9-33.3)
[2020-08-30] MEDS ORDERED: IOVERSOL 320 100 ML VIAL IVP ONE ×2 (10:40→11:02)
[2020-08-30] MEDS ORDERED: ONDANSETRON 4 MG/2 ML VIAL IVP STA (11:04)
--- NOTE | 2020-08-30 11:24 | CT Report ---
PROCEDURE: Abdomen/Pelvis W INDICATIONS: LLQ pain, diverticulitis suspected TECHNIQUE: After the administration of intravenous contrast, 5 mm thick sections acquired from the diaphragms to the symphysis. 2.5 mm thick coronal and sagittal reformats were acquired. Optional 10-minute delay ed imaging may be performed from the kidneys to the bladder. For radiation dose reduction, the follo wing was used: automated exposure control, adjustment of mA and/or kV according to patient size. COMPARISON: Prior CT abdomen/pelvis 03/14/2019. FINDINGS: Image quality: Excellent. ABDOMEN: Lung bases: Lung bases are clear. Heart size is normal. No pericardial effusion. Inferior ribs ar e intact. No basal pleural effusions or pneumothorax. Solid organs: Liver is normal in size and enhancement, without metastatic lesions or evidence of hep atic abscess. Gallbladder is abnormal with dependently best seen centered on series 3 image 34. This could represent mildly radiodense gallstones but a gallbladder mass is a potential alternative cause . Biliary system is non-dilated. Pancreas enhances normally, without transection. Spleen is normal in size and enhancement, without metastatic lesions. No adrenal hematomas. Both kidneys enhance no rmally, without hydronephrosis or lacerations. There are several bilateral small renal calcification s which could represent arterial calcifications or small nonobstructive calculi. Peritoneum and bowel: No free fluid or air. Enhanced small bowel loops demonstrate normal wall thick ness and caliber. Left-sided colonic mural thickness is increased and the appearance is consistent w ith colitis on the left extending just through the splenic flexure and inferiorly. This extends into the left lower quadrant and sigmoid colon. Nodes and vessels: There is retroperitoneal adenopathy best seen at the peripancreatic retroperitoneu m immediately underneath the gallbladder fossa, and mildly compressing the adjacent inferior vena cav a. The mass in this area measures up to 5.1 x 5.1 cm in diameter. Additional mildly enlarged lymph no ruth are seen above the pancreatic head measuring up to 1.8 cm in short axis dimension and contiguousl y at the portacaval space measuring up to 2 cm in short axis dimension.. Aorta and inferior vena cav a are normal in size and enhancement. Miscellaneous: No ventral hernias. PELVIS: Genitourinary: Bladder wall thickness is normal. Miscellaneous: No inguinal hernias or adenopathy. Left lower quadrant and sigmoid colon colitis laura margarita, extending contiguously into the descending colon more superiorly. A discrete colonic mass lesion is not seen. Bones: Pelvic ring and hip joints appear intact. No vertebral compression fractures. IMPRESSION: 1. There is no CT evidence of acute diverticulitis or peridiverticular abscess. There is, however, ge neralized sigmoid and left colonic mural thickening in a pattern consistent with colitis. A colonic m ass lesion is not found on the right or the left within the abdomen and the pelvis. 2. There is a retroperitoneal enlarged pratik mass at the inferior margin of the gallbladder fossa and the superior pancreatic head area. This has a likely malignant etiology, and may be related to a sof t tissue radiodensity seen within the gallbladder lumen. Dedicated gallbladder ultrasound to differen tiate between the gallbladder mucosal mass or low density gallstones is recommended. Additional enlar ged nodes are present scattered in this area, further increasing the likelihood of neoplastic etiolog y. A pancreatic mass is not found. 3. There is no evidence of appendicitis but there is a thin band of radiodensity suggestive of an ent sagar staple line adjacent to the medial border of the cecum, perhaps reflecting prior appendectomy. P lease correlate clinically. 4. Several scattered calcifications at the renal sinus margins bilaterally some of which appear to re present vascular calcifications and others may represent nonobstructive small collecting system calcu li. Reviewed by: Marc Damian MD on 08/30/2020 11:23 AM PDT Approved by: Marc Damian MD on 08/30/2020 11:23 AM PDT Station ID: [id number]
[2020-08-30] MEDS ORDERED: AMOX/CLAV 875 MG/125 MG TABLET PO STA (11:29)
[2020-08-30 11:30] VITALS: BP 164/76
[2020-08-30 11:35] LABS: BILIRUBIN,URINE NEGATIVE (NEGATIVE); GLUCOSE, URINE (UA) NEGATIVE (NEGATIVE); KETONES,URINE (UA) NEGATIVE (NEGATIVE); LEUKOCYTE ESTERASE, URINE NEGATIVE (NEGATIVE); NITRITE,URINE NEGATIVE (NEGATIVE); OCCULT BLOOD,URINE TRACE-INTA (NEGATIVE); PH,URINE 6.5 PH (5.0-7.5); PROTEIN,URINE TRACE mg/dL (NEGATIVE); UROBILINOGEN,URINE 0.2 (NORMAL) E.U./dL (NORMAL)
[2020-08-30 11:36] LABS: CLARITY,URINE CLEAR (CLEAR)
== END 2020-08-30 12:33 | disposition home or self-care (01) ==
LOC: ED 09:02
DX: K52.9 Noninfective gastroenteritis and colitis, unspecified (principal); K62.5 Hemorrhage of anus and rectum; K82.8 Other specified diseases of gallbladder; R59.0 Localized enlarged lymph nodes; I10 Essential (primary) hypertension; E11.9 Type 2 diabetes mellitus without complications; Z72.89 Other problems related to lifestyle; F17.200 Nicotine dependence, unspecified, uncomplicated
CPT/HCPCS: 36415; 74177; 80053; 80320; 81003; 83690; 85025; 85610; 85730; 86850; 86900; 86901; 96374; 99284; A9270; Q9967; 81001; 87086

== ENCOUNTER 2021-07-05 12:27 | Emergency (ER) | payer MEDICARE, MEDICAID ==
--- NOTE | 2021-07-05 12:42 | ED Physician Documentation ---
PD HPI ABD PAIN - Stated complaint Stated Complaint: ABD PX - Chief complaint Chief Complaint: Abd Pain - Additional information Additional information: Patient is a 66-year-old male, past medical significant for Diabetes, hypertension, cirrhosis, alcohol abuse presenting with abdominal pain. Referred by clinic for persistent abdominal pain. He endorses for history of chronic abdominal pain ongoing for several months. States pain is primarily in the left upper and epigastric quadrants. Denies nausea, vomiting but does report intermittent episodes of nonbloody diarrhea. Reports is actively drinking and has "a few" cocktails every evening. Denies fever, chills, chest pain, shortness of breath, night sweats, weight loss, new rash, new weakness/numbness/tingling in any extremity. Review of Systems Ten Systems: 10 systems reviewed and negative Constitutional: denies: Fever Eyes: denies: Loss of vision Ears: denies: Loss of hearing Nose: denies: Rhinorrhea / runny nose Throat: denies: Sore throat Cardiac: denies: Chest pain / pressure Respiratory: denies: Dyspnea GI: reports: Abdominal Pain, Diarrhea. denies: Nausea, Vomiting : denies: Dysuria Skin: denies: Rash PD PAST MEDICAL HISTORY - Past Medical History Cardiovascular: Hypertension Respiratory: None Endocrine/Autoimmune: Type 2 diabetes, HyPERthyroidism, Other GI: GERD, Chronic diarrhea, Hepatitis, Cirrhosis, Diverticulitis, Other Psych: Depression Musculoskeletal: Chronic back pain - Past Surgical History Past Surgical History: Yes General: Appendectomy, Bowel surgery Ortho: Spine surgery - Present Medications Home Medications: Ambulatory Orders Medication Instructions Recorded Confirmed Amlodipine Besylate 10 mg PO DAILY 06/25/18 06/25/18 Pantoprazole [Protonix] 40 mg PO BID 06/25/18 06/25/18 QUEtiapine [SEROquel] 50 mg PO QPM 06/25/18 05/15/19 Trazodone HCl 100 mg PO DAILY 06/25/18 06/25/18 LORazepam [Ativan] 1 mg PO Q6H PRN #15 tablet 03/14/19 Promethazine [Phenergan] 25 mg PO Q8H PRN #30 tab 03/14/19 05/15/19 Cetirizine [ZyrTEC] 1 tab DAILY 05/15/19 05/15/19 Cholecalciferol (Vitamin D3) 05/15/19 [Vitamin D3] Dicyclomine [Bentyl] 2 cap TID PRN 05/15/19 05/15/19 Loperamide [Imodium] 1 tab TID PRN 05/15/19 05/15/19 Magnesium Oxide [Magnesium] 05/15/19 Potassium Chloride 10 mg DAILY 05/15/19 05/15/19 Pravastatin [Pravachol] 2 tab DAILY 05/15/19 05/15/19 Promethazine [Phenergan] 1 tab Q8HR 05/15/19 05/15/19 Sildenafil Citrate [Sildenafil] 1 tab PRN 05/15/19 Thiamine HCl [Vitamin B-1] 05/15/19 lisinopriL [Lisinopril] 1 tab DAILY 05/15/19 05/15/19 Pantoprazole [Protonix] 40 mg PO BID #40 tablet 04/20/20 Sucralfate [Carafate] 1 gm PO ACHS #60 tablet 04/20/20 Amox/Clav 875/125 [Augmentin] 1 each PO Q8H #30 tablet 08/30/20 Ondansetron Odt [Zofran] 4 mg TL Q6H PRN #10 tablet 08/30/20 Ondansetron Odt [Zofran Odt] 4 mg TL Q6H PRN #10 tablet 07/05/21 Oxycodone HCl [Roxicodone] 5 mg PO Q6H #12 tablet 07/05/21 - Allergies Allergies/Adverse Reactions: Allergies Allergy/AdvReac Type Severity Reaction Status Date / Time No Known Drug Allergies Allergy Verified 07/05/21 12:39 - Social History Does the pt smoke?: Yes Smoking Status: Current every day smoker Does the pt drink ETOH?: Yes Does the pt have substance abuse?: No - Immunizations Immunizations are current?: Yes - POLST Patient has POLST: No PD ED PE NORMAL - Vitals Vital signs reviewed: Yes - General General: Alert and oriented X 3 - HEENT HEENT: Atraumatic, Moist mucous membranes - Neck Neck: Supple, no meningeal sign, No bony TTP - Cardiac Cardiac: RRR, No murmur, No gallop - Respiratory Respiratory: No respiratory distress, Clear bilaterally - Abdomen Abdomen: Normal bowel sounds, Soft, Non distended. No: Non tender (LUQ ttp) - Male Male : Deferred - Rectal Rectal: Deferred - Back Back: No CVA TTP - Derm Derm: Normal color - Extremities Extremities: No deformity, No edema - Neuro Neuro: Alert and oriented X 3, mother's helper 2-12 intact, No motor deficit Results - Vitals Vitals: Vital Signs - 24 hr 07/05/21 07/05/21 07/05/21 12:35 12:40 14:39 Temperature 36.2 C L 36.5 C Heart Rate 66 66 60 Respiratory 18 18 16 Rate Blood Pressure 165/77 H 165/77 H 169/83 H O2 Saturation 99 99 97 Oxygen O2 Source Room air - EKG (time done) 1259 Rate: Rate (enter#) (55) Rhythm: NSR [place]: Normal Intervals: Normal [place] QRS: Normal Ischemia: Normal ST segments. No: Hyperacute T waves, T wave inversion Computer interpretation: No: Disagree with computer - Labs Labs: Laboratory Tests 07/05/21 07/05/21 07/05/21 12:40 12:51 12:51 WBC 7.7 RBC 4.04 L Hgb 13.9 L Hct 39.8 L MCV 98.5 H MCH 34.4 H MCHC 34.9 RDW 12.8 Plt Count 141 MPV 11.0 Neut # (Auto) 4.4 Lymph # (Auto) 1.7 Isabella # (Auto) 0.8 Eos # (Auto) 0.7 Baso # (Auto) 0.1 Absolute Nucleated RBC 0.00 Nucleated RBC % 0.0 Sodium 133 L Potassium 4.3 Chloride 99 L Carbon Dioxide 24 Anion Gap 10.0 BUN 21 H Creatinine 0.9 Estimated GFR (MDRD) 85 L Glucose 106 H Calcium 11.6 H Total Bilirubin 1.0 AST 40 ALT 35 Alkaline Phosphatase 92 Troponin I High Sens Total Protein 8.4 H Albumin 4.4 Globulin 4.0 Albumin/Globulin Ratio 1.1 Lipase 54 H Urine Color YELLOW Urine Clarity CLEAR Urine pH 6.0 Ur Specific [place] 1.020 Urine Protein 100 H Urine Glucose (UA) NEGATIVE Urine Ketones TRACE Urine Occult Blood NEGATIVE Urine Nitrite NEGATIVE Urine Bilirubin NEGATIVE Urine Urobilinogen 0.2 (NORMAL) Ur Leukocyte Esterase NEGATIVE Urine RBC 0-5 Urine WBC 0-3 Ur Squamous Epith Cells NONE SEEN Urine Bacteria None Seen Urine Casts 0-2 Hyaline Casts Ur Microscopic Review INDICATED Urine Culture Comments NOT INDICATED 07/05/21 12:51 WBC RBC Hgb Hct MCV MCH MCHC RDW Plt Count MPV Neut # (Auto) Lymph # (Auto) Isabella # (Auto) Eos # (Auto) Baso # (Auto) Absolute Nucleated RBC Nucleated RBC % Sodium Potassium Chloride Carbon Dioxide Anion Gap BUN Creatinine Estimated GFR (MDRD) Glucose Calcium Total Bilirubin AST ALT Alkaline Phosphatase Troponin I High Sens 12.4 Total Protein Albumin Globulin Albumin/Globulin Ratio Lipase Urine Color Urine Clarity Urine pH Ur Specific [place] Urine Protein Urine Glucose (UA) Urine Ketones Urine Occult Blood Urine Nitrite Urine Bilirubin Urine Urobilinogen Ur Leukocyte Esterase Urine RBC Urine WBC Ur Squamous Epith Cells Urine Bacteria Urine Casts Ur Microscopic Review Urine Culture Comments PD MEDICAL DECISION MAKING - ED course Complexity details: reviewed old records, reviewed results, re-evaluated patient, d/w patient ED course: Is a 66-year-old male presenting to the emergency department with chief complaint of abdominal pain. Afebrile, hemodynamically stable on arrival to the emergency department. Abdominal exam largely benign however he did have some left upper quadrant tenderness to palpation. Comprehensive labs obtained were within normal limits or generally nonactionable with the exception of a very minimal elevation in his serum calcium at 11.2. He was given IV hydration in the emergency department. CT of the abdomen and pelvis was significant for multiple perigastric and perihepatic lymph nodes, enlarged consistent with metastatic disease. Additionally he was noted to have a 3 mm ring-enhancing lesion over his liver, also consistent with metastatic disease. Primary cancer is not easily identified on imaging. Chart review does demonstrate that he had similar enlarged lymph nodes noted on CT CAT scan performed 03/14/2019 however at this time they are significantly larger. Patient was monitored in the emergency department for several hours, reevaluated on multiple occasions and found to be resting comfortably. Was given medication for pain/nausea as needed. I did have a long and detailed discussion with the patient about the findings of his CT scan and lab work. Specifically we discussed the importance of following up with his primary care doctor soon as possible as he will need a thorough and comprehensive work-up in the immediate future. He verbalized understanding of this. Otherwise clear return precautions and follow-up instructions were given prior to discharge. Departure - Departure Disposition: 01 Home, Self Care Clinical Impression: Liver mass, Metastatic disease, Hypercalcemia Prescriptions: Oxycodone HCl [Roxicodone] 5 mg PO Q6H #12 tablet Ondansetron Odt [Zofran Odt] 4 mg TL Q6H PRN #10 tablet PRN Reason: Nausea / Vomiting Comments: Is to care for you today at [facility]. Your prescriptions were sent to [facility] in [place]. In the emergency department today you were found to have enlarged lymph nodes around your stomach and liver that is concerning for cancer. There also appears to be a 3 cm nodule on your liver, that is also concerning for cancer. It is very important that you follow-up with your primary care doctor soon as possible concerning these findings. They want to refer you to an appropriate specialist for further testing and to discuss treatment options. I will be discharging with some medications he can take for pain and nausea.'s please stay well-hydrated. If it anytime you have any new or worsening symptoms please not hesitate to return to the emergency department. Discharge Date/Time: 07/05/21 15:17
[2021-07-05 12:56] LABS: BASOPHILS # (AUTO) 0.1 10^3/uL (0.0-0.1); BASOPHILS % (AUTO) 0.8 %; EOSINOPHILS # (AUTO) 0.7 10^3/uL (0.0-0.7); EOSINOPHILS % (AUTO) 9.4 %; HCT - HEMATOCRIT 39.8 % (42.0-52.0); HGB - HEMOGLOBIN 13.9 g/dL (14.0-18.0); LYMPHOCYTES # (AUTO) 1.7 10^3/uL (1.5-3.5); LYMPHOCYTES % (AUTO) 21.7 %; MEAN CORPUSCULAR HEMOGLOBIN 34.4 pg (27.0-31.0); MEAN CORPUSCULAR HGB CONC 34.9 g/dL (32.0-36.0); MEAN CORPUSCULAR VOLUME 98.5 fL (80.0-94.0); MONOCYTES # (AUTO) 0.8 10^3/uL (0.0-1.0); MONOCYTES % (AUTO) 9.8 %; NEUTROPHILS # (AUTO) 4.4 10^3/uL (1.5-6.6); PLT - PLATELET COUNT 141 10^3/uL (130-450); RED BLOOD COUNT 4.04 10^6/uL (4.70-6.10); RED CELL DISTRIBUTION WIDTH 12.8 % (12.0-15.0); WHITE BLOOD COUNT 7.7 x10^3/uL (4.8-10.8)
[2021-07-05 12:57] LABS: BILIRUBIN,URINE NEGATIVE (NEGATIVE); CLARITY,URINE CLEAR (CLEAR); GLUCOSE, URINE (UA) NEGATIVE (NEGATIVE); KETONES,URINE (UA) TRACE mg/dL (NEGATIVE); LEUKOCYTE ESTERASE, URINE NEGATIVE (NEGATIVE); NITRITE,URINE NEGATIVE (NEGATIVE); OCCULT BLOOD,URINE NEGATIVE (NEGATIVE); PROTEIN,URINE 100 mg/dL (NEGATIVE); UROBILINOGEN,URINE 0.2 (NORMAL) E.U./dL (NORMAL)
[2021-07-05 13:07] LABS: BACTERIA,URINE None Seen /HPF (None Seen); CASTS, URINE 0-2 Hyaline Casts /LPF; RBC,URINE 0-5 /HPF (0-5); SQUAMOUS EPITHELIAL CELL,UR NONE SEEN (<= Few); WBC,URINE 0-3 /HPF (0-3)
[2021-07-05 13:08] LABS: ALBUMIN 4.4 g/dL (3.2-5.5); ALBUMIN/GLOBULIN RATIO 1.1 (1.0-2.2); CALCIUM 11.6 mg/dL (8.5-10.3); CREATININE 0.9 mg/dL (0.6-1.2); POTASSIUM 4.3 mmol/L (3.5-5.0); TOTAL PROTEIN 8.4 g/dL (6.7-8.2)
[2021-07-05] MEDS ORDERED: SODIUM CHLORIDE 0.9% 1,000 ML IV STA (13:27)
[2021-07-05] MEDS ORDERED: iohexoL-300 100 ML VIAL ONE (13:33)
--- NOTE | 2021-07-05 14:32 | CT Report ---
PROCEDURE: CT abdomen and pelvis with contrast INDICATIONS: Left upper quadrant pain CONTRAST: IV CONTRAST: Isovue 300 ml: 100 PO CONTRAST: *NO PO CONTRAST TECHNIQUE: After the administration of contrast, 5 mm thick sections acquired from the diaphragms to the sym physis. 5 mm thick coronal and sagittal reformats were acquired. For radiation dose reduction, the following was used: automated exposure control, adjustment of mA and/or kV according to patient size . COMPARISON: None. FINDINGS: Image quality: Excellent. ABDOMEN: Lung bases: Lung bases are clear. Heart size is normal. Solid organs: Liver capsule is a scalloped defect may reflect an element of hepatic cirrhosis. There is a focal enhancing mass lesion in the left hepatic lobe near the falciform ligament measuring 3 cm, previously 2.3 cm. Spleen is enlarged at 14.4 cm. Nonobstructive subcentimeter right renal calculus noted. There is a right renal 2.1 cm cyst, similar prior exams. No hydronephrosis or obstructive urop athy present. Adrenal glands and pancreas are unremarkable. Large gastrohepatic pratik mass now measures 6.7 x 5.3 cm, increased in size from the prior exam. Pham cent smaller of local metastatic nodes present as well. Density in the lumen of the gallbladder remai ns similar to the prior exam. No retroperitoneal adenopathy. Peritoneum and bowel: Bowel loops demonstrate normal wall thickness and caliber. No free fluid or a ir. Appendectomy. Multiple diverticula arise from the sigmoid colon without evidence of cholelithias is or diverticulitis. Nodes and vessels: No retroperitoneal adenopathy by size criteria. Aorta and inferior vena cava are normal in size. Atherosclerotic calcification of the abdominal aorta without evidence of aneurysm. Miscellaneous: Periumbilical ventral hernia contains fat without bowel involvement. PELVIS: Genitourinary: Bladder wall thickness is normal. Miscellaneous: No inguinal hernias or adenopathy. Bones: No suspicious bony lesions. No vertebral body compression fractures. Degenerative disc dise ase and arthropathy in the lower lumbar spine is stable from the prior IMPRESSION: 1. Enlarging gastrohepatic metastatic adenopathy now measures up to 6.7 cm. Associated with debris in the lumen of the gallbladder again noted stable. 2. Enhancing left hepatic 3 cm nodule is likely also metastatic 3. Probable hepatic cirrhosis. Stable splenic megaly Reviewed by: Marin Palacio MD on 07/05/2021 1:30 PM [place] Approved by: Marin Palacio MD on 07/05/2021 1:30 PM [facility] Station ID: [id number]
[2021-07-05 14:53] VITALS: BP 169/83
[2021-07-05] MEDS ORDERED: iohexoL-300 100 ML VIAL IVP ONE (16:40)
== END 2021-07-05 15:17 | disposition home or self-care (01) ==
LOC: ED 12:27
DX: C78.7 Secondary malignant neoplasm of liver and intrahepatic bile duct (principal); C77.2 Secondary and unspecified malignant neoplasm of intra-abdominal lymph nodes; C80.1 Malignant (primary) neoplasm, unspecified; E83.52 Hypercalcemia; E11.9 Type 2 diabetes mellitus without complications; I10 Essential (primary) hypertension; F17.200 Nicotine dependence, unspecified, uncomplicated
CPT/HCPCS: 36415; 74177; 80053; 81001; 83690; 84484; 85025; 93005; 96360; 99283; 99284; Q9967; 81003; 87086

== ENCOUNTER 2021-08-22 14:30 | Outpatient (CLI) | payer MEDICARE, MEDICAID | END 2021-08-22 14:31 | disposition home or self-care (01) | LOC: LAB.S 14:30 | PROVIDERS: ATTEND Internal Medicine | DX: C22.0 Liver cell carcinoma (principal) | CPT/HCPCS: 81599; 82105 ==

== ENCOUNTER 2021-09-24 16:12 | Outpatient (CLI) | payer MEDICARE, MEDICAID ==
[2021-09-24 20:13] LABS: BASOPHILS % (AUTO) 0.6 %; EOSINOPHILS # (AUTO) 0.3 10^3/uL (0.0-0.7); HCT - HEMATOCRIT 37.1 % (42.0-52.0); HGB - HEMOGLOBIN 12.4 g/dL (14.0-18.0); LYMPHOCYTES # (AUTO) 1.4 10^3/uL (1.5-3.5); LYMPHOCYTES % (AUTO) 21.2 %; MEAN CORPUSCULAR HEMOGLOBIN 33.8 pg (27.0-31.0); MEAN CORPUSCULAR HGB CONC 33.4 g/dL (32.0-36.0); MEAN CORPUSCULAR VOLUME 101.1 fL (80.0-94.0); MEAN PLATELET VOLUME 12.2 fL (7.4-11.4); MONOCYTES # (AUTO) 0.7 10^3/uL (0.0-1.0); MONOCYTES % (AUTO) 10.1 %; NEUTROPHILS % (AUTO) 62.8 %; PLT - PLATELET COUNT 149 10^3/uL (130-450); RED BLOOD COUNT 3.67 10^6/uL (4.70-6.10); RED CELL DISTRIBUTION WIDTH 13.1 % (12.0-15.0); WHITE BLOOD COUNT 6.4 x10^3/uL (4.8-10.8)
[2021-09-24 20:33] LABS: ALBUMIN 3.3 g/dL (3.2-5.5); ALBUMIN/GLOBULIN RATIO 0.9 (1.0-2.2); BILIRUBIN,TOTAL 0.5 mg/dL (0.2-1.0); CALCIUM 10.3 mg/dL (8.5-10.3); MAGNESIUM 1.4 mg/dL (1.7-2.8); PHOSPHORUS 2.7 mg/dL (2.5-4.6); POTASSIUM 4.7 mmol/L (3.5-5.0)
== END 2021-09-24 16:13 | disposition home or self-care (01) ==
LOC: LAB.S 16:12
PROVIDERS: ATTEND Internal Medicine
DX: C22.0 Liver cell carcinoma (principal); C79.51 Secondary malignant neoplasm of bone
CPT/HCPCS: 36415; 80053; 81599; 82105; 83735; 84100; 84156; 84443; 85025

== ENCOUNTER 2021-09-25 13:10 | Outpatient (CLI) | payer MEDICARE, MEDICAID ==
--- NOTE | 2021-09-25 16:32 | CT Report ---
PROCEDURE: CHEST WO INDICATIONS: HEPATOCELLULAR CA TECHNIQUE: Noncontrast 1mm axial images were acquired from the pulmonary apices to the posterior costophrenic an gles. Axial 5 mm soft tissue kernel reconstructions were performed as well as 8 mm axial MIP and cor onal and sagittal 5 mm reformations. For radiation dose reduction, the following was used: automate d exposure control, adjustment of mA and/or kV according to patient size. COMPARISON: CT abdomen pelvis 07/05/2021 FINDINGS: Image quality: Excellent. Lungs and pleura: No acute air space opacities. Scattered punctate calcifications in both lungs. No dominant nodule or lung mass. No pleural effusions or pneumothorax. Central and peripheral airways a re patent and normal in caliber. Mild bilateral lower lobe bronchial wall thickening. No bronchial n arrowing. Mediastinum: Heart size is normal. Moderate to heavy coronary artery calcification. No pericardial e ffusion. No mediastinal adenopathy by size criteria. Several small mediastinal lymph nodes. Thoraci c aorta and central pulmonary arteries are normal in size. Esophagus is normal in caliber. No hiata l hernia. Bones and chest wall: No suspicious bony lesions. No vertebral body compression fractures. No axil loi or supraclavicular adenopathy by size criteria. The thyroid is normal in size and there are no incidental findings. Abdomen: Enlarged, cirrhotic liver. Partially imaged portacaval mass. Partially imaged gallbladder wi th probable stones. Probable splenomegaly. Visible stomach and bowel loops are within normal limits. IMPRESSION: 1. No evidence of metastatic disease in the chest. 2. Changes of minor bilateral lower lobe bronchitis. 3. Moderate to heavy coronary artery calcification. 4. Stable upper abdominal findings compared to the most recent CT abdomen pelvis. Reviewed by: Deidre Fall MD on 09/25/2021 4:30 PM PDT Approved by: Deidre Fall MD on 09/25/2021 4:30 PM PDT Station ID: [id number]
== END 2021-09-25 13:11 | disposition home or self-care (01) ==
LOC: DI 13:10
PROVIDERS: ATTEND Internal Medicine
DX: C22.0 Liver cell carcinoma (principal); J40 Bronchitis, not specified as acute or chronic; I25.10 Atherosclerotic heart disease of native coronary artery without angina pectoris; K74.60 Unspecified cirrhosis of liver; R93.2 Abnormal findings on diagnostic imaging of liver and biliary tract

== ENCOUNTER 2021-10-24 08:55 | Day surgery (SDC) | payer MEDICARE, MEDICAID ==
[2021-10-24] MEDS ORDERED: LACTATED RINGERS 1,000 ML IV ONE ×2 (09:00→10:48)
--- NOTE | 2021-10-24 09:37 | ANESTHESIA ---
Pre-Anesthesia VS, & Labs - Diagnosis liver cancer, varices - Procedure EGD Vital Signs: Temp Pulse Resp BP Pulse Ox 36.5 C 89 14 157/81 H 98 10/24/21 09:13 10/24/21 09:13 10/24/21 09:13 10/24/21 09:13 10/24/21 09:13 Height: 6 ft 2 in Weight (kg): 81 kg Body Mass Index: 22.9 BMI Classification: Healthy weight - NPO >8 hours - Lab Results Lab results reviewed: Yes Home Medications and Allergies Home Medications: Ambulatory Orders Multivit-Minerals/Folic Acid [Men's Multivitamin Gummies] 1 tab PO DAILY 10/23/21 Ondansetron HCl 4 mg PO PRN 10/23/21 Amlodipine Besylate 10 mg PO DAILY 06/25/18 Pantoprazole [Protonix] 40 mg PO BID 06/25/18 Trazodone HCl 100 mg PO DAILY 06/25/18 Cetirizine [ZyrTEC] 1 tab DAILY 05/15/19 Dicyclomine [Bentyl] 2 cap TID PRN 05/15/19 Loperamide [Imodium] 1 tab TID PRN 05/15/19 Pravastatin [Pravachol] 2 tab DAILY 05/15/19 Sildenafil Citrate [Sildenafil] 1 tab PO DAILY PRN 05/15/19 lisinopriL [Lisinopril] 1 tab DAILY 05/15/19 QUEtiapine [SEROquel] 50 mg PO QPM 10/13/21 Tamsulosin [Flomax] 0.4 mg PO DAILY 10/13/21 Multivit-Minerals/Folic Acid [Men's Multivitamin Gummies] 1 tab PO DAILY 10/23/21 Ondansetron HCl 4 mg PO PRN 10/23/21 Allergies/Adverse Reactions: Allergies Allergy/AdvReac Type Severity Reaction Status Date / Time No Known Drug Allergies Allergy Verified 10/23/21 13:17 Anes History & Medical History - Anesthetic History Anesthesia Complications: reports: No previous complications Family history of Anesthesia Complications: Denies Family history of Malignant Hyperthermia: Denies - Medical History Cardiovascular: reports: Hypertension, High cholesterol Pulmonary: reports: None Gastrointestinal: reports: GERD, Chronic diarrhea, Hepatitis, Cirrhosis, Diverticulitis, Other (liver mass) Urinary: reports: Benign prostate hypertrophy Musculoskeletal: reports: Chronic back pain, Other Endocrine/Autoimmune: Smoking Status: Current every day smoker (1 ppd) Psychosocial: reports: Alcohol (3 beers per day) - Surgical History General: reports: Appendectomy, Bowel surgery Orthopedic: reports: Spine surgery Exam General: Alert, Oriented x3, Cooperative, No acute distress Dental: Poor dentition Mouth Openin Fingerbreadth Neck Mobility: Normal Mallampati classification: I Plan Anesthesia Type: Total IV Consent for Procedure(s) Verified and Reviewed: Yes Code Status: Attempt Resuscitation ASA classification: 3-Severe systemic disease Is this case an emergency?: No
[2021-10-24] MEDS ORDERED: LIDOCAINE-MPF 2% 5 ML VIAL ONE (10:27)
[2021-10-24] MEDS ORDERED: PROPOFOL 200 MG/20 ML VIAL IVP ONE (10:27)
[2021-10-24] MEDS ORDERED: MIDAZOLAM 2 MG/2 ML VIAL ONE (10:28)
[2021-10-24 11:42] VITALS: BP 158/94
--- NOTE | 2021-10-24 11:43 | ANESTHESIA POST OP EVALUATION ---
Anesthesia Post Eval - Post Anesthesia Eval Vitals: Last Vital Signs Temp 36.5 C 10/24/21 11:41 Pulse 64 10/24/21 11:41 Resp 18 10/24/21 11:41 BP 158/94 H 10/24/21 11:41 Pulse Ox 97 10/24/21 11:41 CV Function Including HR & BP: Stable Pain Control: Satisfactory Nausea & Vomiting: Negative Mental Status: Baseline Respiratory Status: Airway Patent Hydration Status: Satisfactory Anesthesia Complications: None
== END 2021-10-24 08:56 | disposition home or self-care (01) ==
LOC: SDS 08:55
PROVIDERS: ATTEND Surgery
DX: C22.0 Liver cell carcinoma (principal); K74.60 Unspecified cirrhosis of liver; K21.9 Gastro-esophageal reflux disease without esophagitis; F17.210 Nicotine dependence, cigarettes, uncomplicated
CPT/HCPCS: 43235; J7120

== ENCOUNTER 2021-10-27 10:01 | Outpatient (CLI) | payer MEDICARE, MEDICAID ==
--- NOTE | 2021-10-27 18:37 | CONSULTATION NOTE ---
Palliative Care Consultation - Referral Referring Provider: Dr. 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 Patient also presented with hypercalcemia with bone mets, has had a port placed,And has recently transitioned his care from [facility] to Dr. Aranda [facility]. It is unclear exactly the delay in treatment, as patient did get a CT of the abdomen July 2017 that had shown some enhancement in the liver with worsening adenopathy, when he got an MRI of the liver in April 2018 showed no concerning findings but did receive treatment for hep C. As oncology history shows an MRI from September 2018 showing an [id number], and 03/25 for subcapsular hypervascular focus without definitive washout and periportal lymphadenopathy. He presented to the ED on 08/18/2021 with abdominal pain showing significant increase in size of the soft tissue density of the 7.8 x 6 cm mass, looking at worsening malignant burden, and has since had liver biopsy and bone scan. Patient has been feeling poorly over several months, with poor appetite, worsening abdominal pain, declining functional status, known splenomegaly and cirrhosis. He does understand his treatment is palliative in nature, he does have significant concerns regarding his financial status, and is still att empting to work. He does have significant abdominal pain, but has been trying to minimize his oxycodone use in the context of work and driving. Patient still actively drinks, though has cut back to few beers in the evening per his report, as well as continues to smoke a pack of cigarettes a day. Medical/Surgical History - Past Medical History Cardiovascular: reports: Hypertension, High cholesterol Respiratory: reports: None, Other (tobacco use) Endocrine/Autoimmune: GI: reports: GERD, Chronic diarrhea, Hepatitis, Cirrhosis, Diverticulitis, Other (hepatocellular CA) : reports: Benign prostate hypertrophy HEENT: reports: None Psych: reports: Depression, Anxiety Musculoskeletal: reports: Fatigue, Chronic back pain MRSA Hx?: No - Past Surgical History General: reports: Appendectomy, Bowel surgery Ortho: reports: Spine surgery - Substance History Use: Uses substance without health or social issues: Tobacco (smokes one pack /day) Dependence: Experiences withdrawal or developed tolerances: Alcohol Social History - Living Situation Living arrangement: Other (trailer on property of friend) Living Situation: Alone Support System: Patient lives alone, on a trailer on some property. 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 He does feel like he needs to continue to work as long as possible, he is concerned about finances, has been working with the [employer], and has obtained Medicaid. Family History - Family History Family History: Mother: (94 old age but on hospice 10/05/21), Father: , Alzheimer's Disease, Sister: Alive and Well (2 daughters), Brother: Alive and Well, Other family: Alive and Well Medications/Allergies - Medications Home Medications: Ambulatory Orders Medication Instructions Recorded Confirmed Amlodipine Besylate 10 mg PO DAILY 06/25/18 10/27/21 Pantoprazole [Protonix] 40 mg PO BID 06/25/18 10/27/21 Trazodone HCl 100 mg PO DAILY 06/25/18 10/27/21 Cetirizine [ZyrTEC] 1 tab PO DAILY PRN 05/15/19 10/27/21 Loperamide [Imodium] 1 tab TID PRN 05/15/19 10/27/21 Pravastatin [Pravachol] 40 mg PO DAILY 05/15/19 10/27/21 lisinopriL [Lisinopril] 10 mg PO DAILY 05/15/19 10/27/21 QUEtiapine [SEROquel] 50 mg PO QPM 10/13/21 10/27/21 Tamsulosin [Flomax] 0.4 mg PO DAILY 10/13/21 10/27/21 Multivit-Minerals/Folic Acid 1 tab PO DAILY 10/23/21 10/27/21 [Men's Multivitamin Gummies] Doxazosin [Cardura] 1 mg PO DAILY PM MDD 2 mg 10/27/21 10/27/21 Ondansetron [Zuplenz] 8 mg PO Q8HR PRN 10/27/21 10/27/21 Oxycodone HCl [Roxicodone] 5 - 10 mg PO Q4HR PRN 10/27/21 10/27/21 Prochlorperazine Maleate 10 mg PO Q6HR PRN 10/27/21 10/27/21 - Allergies Allergies/Adverse Reactions: Allergies Allergy/AdvReac Type Severity Reaction Status Date / Time No Known Drug Allergies Allergy Verified 10/23/21 13:17 Review of Systems - Constitutional Constitutional: reports: Fatigue (worsening), Weakness, Weight loss - Eyes Eyes: reports: Vision loss - Ears, Nose & Throat Ears, Nose & Throat: reports: Postnasal drainage, Dry mouth - Cardiovascular Cardiovascular: reports: Decr. exercise tolerance - Respiratory Respiratory: denies: SOB at rest - Gastrointestinal Gastrointestinal: reports: Abdominal pain, Abdominal distention, Diarrhea, Reflux/heartburn, Bloating, Good appetite - Genitourinary Genitourinary: reports: Frequency, Other (difficulty with stream) - Musculoskeletal Musculoskeletal: reports: Muscle pain, Back pain, Muscle aches, Stiffness, Muscle weakness - Integumentary Integumentary: reports: Dryness - Neurological Neurological: reports: General weakness - Psychiatric Psychiatric: reports: Anxiety. denies: Depression, Suicidal - All Other Systems All Other Systems: reports: Reviewed and negative Physical Exam - Vital Signs Temperature: 36.5 C Pulse Rate: 86 Respiratory Rate: 18 Blood Pressure: 146/78 - Physical Exam General Appearance: positive: No acute distress, Alert Eyes Bilateral: positive: Normal inspection, No scleral icterus ENT: positive: No signs of dehydration Neck: positive: Trachea midline Cardiovascular: positive: Regular rate & rhythm Respiratory: positive: No respiratory distress, Breath sounds nml, Diminished in bases. negative: Wheezes Abdomen: positive: Soft, Tenderness, Distended Skin: positive: Dryness. negative: Jaundice Neurologic/Psychiatric: positive: Oriented x3, Mood/affect nml, Flat affect Palliative Care - POLST Patient has POLST: No Pain: Pain worsening, Location (Bilateral hip and back pain; relieved some with oxycodone; patient is working and hesisitant to use), Severity (7/10) Tiredness/Fatigue: Mild (1-3) Drowsiness/Sedation: None Nausea: None Anorexia: None Dyspnea: None Depression: None Anxiety: Mild (1-3) Feelings of wellbeing/Perceived Quality of Life: Excellent, Acceptable, Worsening Sleep: Sleeps well Constipation: No Performance Status: Patient has remained functional, is ambulatory and able to manage his ADLs. He does report increasing fatigue and some weakness. He has an ECOG 1. - Palliative Care Discussion: Introduced the role of palliative care, patient has been getting his opioids from [facility], will work with palliative care for pain and symptom management. Patient does understand the seriousness of his illness, he is hoping both for quality and quantity of time. Patient is somewhat vague on his story as far as delay of time, reports COVID happened, and had minimal access to community services and health care. Patient has minimal community support, does live alone. He reports his daughter does have a place for him at the point he no longer can work or care for himself, his plan is to move up to [facility]. He does have another daughter as well but reports she is "the emotional one". He does feel like Raissa his daughter would be able to manage and provide adequate support. He has been working on his end-of-life documents, getting his "affairs in order". He is somewhat pragmatic regarding this. We will have patient's bring in his advance directives when they are completed, and consider POLST given on his wishes. Results - Lab Results Lab results reviewed: Yes Impression and Recommendations - Palliative Care Impression: This is a 66-year-old gentleman who presents with stage IV hepatocellular carcinoma, to begin treatment. Patient does present with abdominal pain, fatigue, and appropriate anxiety. Patient aware treatment palliative in nature, introduced the role of palliative care for providing support for pain and symptom management. Recommendations/Counseling Done: 1. Pain of neoplastic origin. The patient has long-term chronic back pain, but pain is exacerbated on right hip, most likely attributed to his bone mets. Patient may benefit from consideration of radiation, will follow up with oncology. Patient using minimal oxycodone, secondary to concerns for work and driving. Patient does have high tolerance given his history of alcohol and smoking. Counseling provided regarding management of pain, use of oxycodone, and options for the future regarding long-acting pain medication. Palliative care to continue to meet with patient regularly for adjustments. 2. Anxiety. Patient presents with appropriate anxiety given his underlying diagnoses, and minimal community support. Patient with significant financial stressors, may need further support from financial services associate at [facility]. We will continue to monitor. Patient is working with Senior services as well. 3. BPH. Patient currently without primary care provider. Having increased symptoms of urinary retention and frequency. Has been on Flomax for a long period of time, we will go ahead and add doxazosin 1 mg at bedtime for 1 week, if no improvement to increase to 2 tabs and will reevaluate at next visit. 4. Advance care planning. Patient has been working on his end-of-life documents and planning, plan to review with next visit, consider POLST. Counseling provided regarding role of palliative care, patient does have a plan for end-of-life or when no longer working, will transition to daughter's home. 60 minutes Review of oncology notes, imaging, labs, surgical notes, ED notes, [id number] with patient for counseling regarding pain and symptom management, anticipatory guidance, creating rapport, and coordination of care with oncology team
== END 2021-10-27 10:02 | disposition home or self-care (01) ==
LOC: PC 10:01
PROVIDERS: ATTEND Nurse Practitioner Adult Health
DX: Z51.5 Encounter for palliative care (principal); G89.3 Neoplasm related pain (acute) (chronic); C22.0 Liver cell carcinoma; C79.51 Secondary malignant neoplasm of bone; M25.551 Pain in right hip; F41.9 Anxiety disorder, unspecified; N40.1 Benign prostatic hyperplasia with lower urinary tract symptoms; R33.8 Other retention of urine; R35.0 Frequency of micturition; F17.200 Nicotine dependence, unspecified, uncomplicated
CPT/HCPCS: 99205

== ENCOUNTER 2021-11-04 08:00 | Outpatient (CLI) | payer MEDICARE, MEDICAID ==
[2021-11-04 20:54] LABS: TOTAL PROTEIN 24HR,URINE 3749 mg/24hr (40-150); TOTAL PROTEIN,URINE TIMED 326 mg/dL; TOTAL VOLUME 24HRS,URINE 1150 mL
== END 2021-11-04 23:59 | disposition home or self-care (01) ==
LOC: LAB 08:00
PROVIDERS: ATTEND Internal Medicine Hematology & Oncology
DX: C22.0 Liver cell carcinoma (principal)
CPT/HCPCS: 84156

== ENCOUNTER 2021-12-29 12:58 | Outpatient (CLI) | payer MEDICARE, MEDICAID ==
[2021-12-29 14:41] LABS: BASOPHILS # (AUTO) 0.1 10^3/uL (0.0-0.1); BASOPHILS % (AUTO) 0.8 %; EOSINOPHILS # (AUTO) 0.4 10^3/uL (0.0-0.7); EOSINOPHILS % (AUTO) 5.5 %; HCT - HEMATOCRIT 34.5 % (42.0-52.0); HGB - HEMOGLOBIN 11.6 g/dL (14.0-18.0); LYMPHOCYTES % (AUTO) 13.3 %; MEAN CORPUSCULAR HEMOGLOBIN 32.8 pg (27.0-31.0); MEAN CORPUSCULAR HGB CONC 33.6 g/dL (32.0-36.0); MEAN CORPUSCULAR VOLUME 97.5 fL (80.0-94.0); MEAN PLATELET VOLUME 12.4 fL (7.4-11.4); MONOCYTES # (AUTO) 0.7 10^3/uL (0.0-1.0); MONOCYTES % (AUTO) 9.7 %; NEUTROPHILS % (AUTO) 70.1 %; PLT - PLATELET COUNT 109 10^3/uL (130-450); RED BLOOD COUNT 3.54 10^6/uL (4.70-6.10); RED CELL DISTRIBUTION WIDTH 14.4 % (12.0-15.0); WHITE BLOOD COUNT 7.1 x10^3/uL (4.8-10.8)
[2021-12-29 15:22] LABS: ALBUMIN 2.7 g/dL (3.2-5.5); ALBUMIN/GLOBULIN RATIO 0.7 (1.0-2.2); BILIRUBIN,TOTAL 0.8 mg/dL (0.2-1.0); CREATININE 1.1 mg/dL (0.6-1.2); MAGNESIUM 1.5 mg/dL (1.7-2.8); POTASSIUM 4.4 mmol/L (3.5-5.0); TOTAL PROTEIN 6.5 g/dL (6.7-8.2)
== END 2021-12-29 12:59 | disposition home or self-care (01) ==
LOC: LAB.S 12:58
PROVIDERS: ATTEND Nurse Practitioner Adult Health
DX: C22.0 Liver cell carcinoma (principal)
CPT/HCPCS: 36415; 80053; 83735; 85025

== ENCOUNTER 2022-01-03 11:11 | Emergency (ER) | payer MEDICARE, MEDICAID ==
[2022-01-03 11:59] LABS: BASOPHILS % (AUTO) 0.4 %; EOSINOPHILS % (AUTO) 0.5 %; HCT - HEMATOCRIT 39.1 % (42.0-52.0); HGB - HEMOGLOBIN 13.4 g/dL (14.0-18.0); LYMPHOCYTES # (AUTO) 0.6 10^3/uL (1.5-3.5); LYMPHOCYTES % (AUTO) 7.8 %; MEAN CORPUSCULAR HEMOGLOBIN 32.7 pg (27.0-31.0); MEAN CORPUSCULAR HGB CONC 34.3 g/dL (32.0-36.0); MEAN CORPUSCULAR VOLUME 95.4 fL (80.0-94.0); MEAN PLATELET VOLUME 10.2 fL (7.4-11.4); MONOCYTES # (AUTO) 0.4 10^3/uL (0.0-1.0); MONOCYTES % (AUTO) 5.7 %; NEUTROPHILS # (AUTO) 6.5 10^3/uL (1.5-6.6); NEUTROPHILS % (AUTO) 84.8 %; PLT - PLATELET COUNT 131 10^3/uL (130-450); RED CELL DISTRIBUTION WIDTH 14.3 % (12.0-15.0); WHITE BLOOD COUNT 7.7 x10^3/uL (4.8-10.8)
[2022-01-03] MEDS ORDERED: ONDANSETRON 4 MG/2 ML VIAL IVP STA (11:59)
[2022-01-03] MEDS ORDERED: SODIUM CHLORIDE 0.9% 1,000 ML IV STA (11:59)
[2022-01-03] MEDS ORDERED: HYDROmorphone 1 MG/ML CARPUJECT IVP STA (11:59)
--- NOTE | 2022-01-03 12:03 | ED Physician Documentation ---
History of Present Illness - Stated complaint Stated Complaint: NAUSEA/LLAMAS - Chief complaint Chief Complaint: Abd Pain - Additonal information Additional information: 66-year-old male presents the emergency department for evaluation of loss of appetite, nausea, intermittent vomiting and generalized abdominal pain that has been worsening over the last week. He is also endorsing a headache. This gentleman currently being treated for stage IV hepatocellular carcinoma with metastasis to the bones. He did undergo palliative radiation in late November 2021 and is currently undergoing chemotherapy. His course has been complicated by recurrent dehydration, diarrhea, hyponatremia and acute kidney injury. He did recently have some changes in his medications with regards to his prazosin and Flomax for constant dribbling urine and incomplete bladder emptying. He does have Compazine and oxycodone prescribed for pain that he describes as ineffective Review of Systems Constitutional: denies: Fever, Chills Eyes: reports: Reviewed and negative Ears: reports: Reviewed and negative Throat: reports: Reviewed and negative Cardiac: reports: Reviewed and negative Respiratory: reports: Reviewed and negative GI: reports: Abdominal Pain, Nausea, Vomiting, Diarrhea. denies: Bloody / black stool : reports: Frequency. denies: Dysuria Skin: reports: Reviewed and negative Neurologic: reports: Headache PD PAST MEDICAL HISTORY - Past Medical History Past Medical History: Yes Cardiovascular: Hypertension, High cholesterol Respiratory: None, Other Neuro: None Endocrine/Autoimmune: None GI: GERD, Chronic diarrhea, Hepatitis, Cirrhosis, Diverticulitis, Other : Benign prostate hypertrophy HEENT: None Psych: Depression, Anxiety Musculoskeletal: None, Fatigue, Chronic back pain Derm: None - Past Surgical History Past Surgical History: Yes General: Appendectomy, Bowel surgery Ortho: Spine surgery - Present Medications Home Medications: Ambulatory Orders Medication Instructions Recorded Confirmed Pantoprazole [Protonix] 40 mg PO BID 06/25/18 01/03/22 Trazodone HCl 150 mg PO HS 06/25/18 01/03/22 Loperamide [Imodium] 1 tab TID PRN 05/15/19 01/03/22 lisinopriL [Lisinopril] 10 mg PO DAILY 05/15/19 01/03/22 QUEtiapine [SEROquel] 50 mg PO QPM 10/13/21 01/03/22 Tamsulosin [Flomax] 0.4 mg PO BID 10/13/21 01/03/22 Multivit-Minerals/Folic Acid 1 tab PO DAILY 10/23/21 01/03/22 [Men's Multivitamin Gummies] Ondansetron [Zuplenz] 8 mg PO Q8HR PRN 10/27/21 01/03/22 Oxycodone HCl [Roxicodone] 5 - 10 mg PO Q4HR PRN 10/27/21 01/03/22 Prochlorperazine Maleate 10 mg PO Q6HR PRN 10/27/21 01/03/22 Furosemide [Lasix] 20 mg PO DAILY 12/01/21 01/03/22 Finasteride [Proscar] 5 mg PO DAILY 01/03/22 01/03/22 Ondansetron Odt [Zofran] 4 mg TL Q6H PRN #30 tablet 01/03/22 dexAMETHasone [Decadron] 4 mg PO DAILY 01/03/22 01/03/22 - Allergies Allergies/Adverse Reactions: Allergies Allergy/AdvReac Type Severity Reaction Status Date / Time No Known Drug Allergies Allergy Verified 01/03/22 11:21 - Social History Does the pt smoke?: Yes Smoking Status: Current every day smoker Does the pt drink ETOH?: Yes Does the pt have substance abuse?: No - Immunizations Immunizations are current?: Yes - POLST Patient has POLST: No PD ED PE NORMAL - General General: Alert and oriented X 3, No acute distress, Well developed/nourished - HEENT HEENT: Atraumatic, Moist mucous membranes - Neck Neck: Supple, no meningeal sign, No adenopathy - Cardiac Cardiac: RRR, No murmur - Respiratory Respiratory: No respiratory distress - Abdomen Abdomen: Normal bowel sounds, Soft. No: Non tender (Generalized nonfocal abd ominal tenderness. Large midline surgical incision well-healed as well as 1 in the right lower quadrant) - Back Back: No CVA TTP - Derm Derm: Normal color, Warm and dry - Extremities Extremities: No deformity, No tenderness to palpate - Neuro Neuro: Alert and oriented X 3, quantitative consultant 2-12 intact Eye Opening: Spontaneous Motor: Obeys Commands Verbal: Oriented GCS Score: 15 Results - Vitals Vitals: Vital Signs - 24 hr 01/03/22 01/03/22 11:16 12:26 Temperature 36.3 C L Heart Rate 93 78 Respiratory 16 12 Rate Blood Pressure 169/80 H 152/79 H O2 Saturation 98 94 Oxygen O2 Source Room air - Labs Labs: Laboratory Tests 01/03/22 01/03/22 01/03/22 11:52 11:52 11:55 WBC 7.7 RBC 4.10 L Hgb 13.4 L Hct 39.1 L MCV 95.4 H MCH 32.7 H MCHC 34.3 RDW 14.3 Plt Count 131 MPV 10.2 Neut # (Auto) 6.5 Lymph # (Auto) 0.6 L [place] # (Auto) 0.4 Eos # (Auto) 0.0 Baso # (Auto) 0.0 Absolute Nucleated RBC 0.00 Nucleated RBC % 0.0 Sodium 132 L Potassium 4.3 Chloride 97 L Carbon Dioxide 26 Anion Gap 9.0 BUN 22 H Creatinine 0.9 Estimated GFR (MDRD) 85 L Glucose 256 H Calcium 10.3 Total Bilirubin 0.4 AST 27 ALT 23 Alkaline Phosphatase 164 H Total Protein 7.0 Albumin 2.9 L Globulin 4.1 Albumin/Globulin Ratio 0.7 L Lipase 64 H Urine Color YELLOW Urine Clarity CLEAR Urine pH 6.5 Ur Specific [place] 1.020 Urine Protein >=300 H Urine Glucose (UA) NEGATIVE Urine Ketones NEGATIVE Urine Occult Blood MODERATE H Urine Nitrite NEGATIVE Urine Bilirubin NEGATIVE Urine Urobilinogen 1 (NORMAL) Ur Leukocyte Esterase NEGATIVE Urine RBC 6-10 H Urine WBC 4-5 Ur Squamous Epith Cells RARE Squamous Urine Bacteria None Seen Urine Casts 0-2 Granular Casts Urine Mucus Few Strands Ur Microscopic Review INDICATED Urine Culture Comments NOT INDICATED - Rads (name of study) head ct Radiology: Final report received (No significant intracranial abnormality is seen. No masses or mass-effect can be seen within the limits of a noncontrast head CT) ct abd/pelvis w Radiology: Final report received (2 areas of suspicious enhancement can be seen within the liver consistent with a given history. Enlarged precaval lymph node is seen similar to prior. Liver demonstrates cirrhotic appearance. Splenomegaly. Incidental note of gallstone, fat-containing periumbilical hernia, bilateral inguinal hernia) PD MEDICAL DECISION MAKING - ED course Complexity details: re-evaluated patient, considered differential, d/w patient ED course: 66-year-old male who has a history of liver cancer with metastasis to the bones who has been undergoing palliative radiation as well as chemotherapy presents to the emergency department with a chief complaint of anorexia nausea and worsening abdominal pain. He has had some intermittent vomiting. His pain is usually managed with oxycodone. Typically taking 5 tablets a day. Also Compazine which he does not think is very effective for the nausea. Today screening labs were obtained. No though there are some abnormalities there is no significant change from recent labs. No significant anemia. He is noted to be mildly hyponatremic. No worrisome LFT or bilirubin abnormalities. Urine shows no signs of infection. He had reported a headache and given the history of cancer with mets a CT was completed that did not show any obvious findings. I did do a CT of the abdomen with contrast. There are multiple incidental note is made of gallstones, as well as periumbilical and inguinal fat-containing hernias. Patient was aware of these when I discussed the findings. The CT did confirm that the liver cancer though essentially unchanged from previous. No new worrisome findings. Here in the emergency department patient was given Zofran as well as a liter crystalloid and reported feeling much better. He did request a second liter of crystalloid which we completed today. I will send a prescription for Zofran to the pharmacy. He will continue close follow-up with his oncologist for further evaluation and treatment. Emergent return precautions discussed Departure - Departure Disposition: 01 Home, Self Care Clinical Impression: Liver cancer, primary, with metastasis from liver to other site, Nausea, Lack of appetite, Hyponatremia Hematuria Qualifiers: Hematuria type: unspecified type Qualified Code(s): R31.9 - Hematuria, unspecified Condition: Stable Record reviewed to determine appropriate education?: Yes Prescriptions: Ondansetron Odt [Zofran] 4 mg TL Q6H PRN #30 tablet PRN Reason: Nausea / Vomiting Comments: David you are seen today in the emergency department primarily for nausea, lack of appetite and abdominal pain. You do have a history of liver cancer with metastasis to your bones and you are currently undergoing radiation and chemotherapy. Today your screening labs showed no significant worrisome abnormalities. You do not have a significant anemia or abnormal electrolytes. Your sodium level is a little low today but essentially unchanged from previous. We did do a CT of your head that did not show any findings of metastasis or mass. We did complete the CT of your abdomen with contrast. The appearance of the liver cancer is essentially unchanged. There are incidental findings made of some nonworrisome gallstones as well as periumbilical and inguinal fat- containing hernias. These are asymptomatic for you and do not require any further work-up or concern. We did give you 2 L of crystalloid/IV fluid here in the emergency department and you are feeling better. In order to better address the nausea I am sending a prescription of Zofran to the [facility] in [place]. You can take this 3-4 times a day. In general I recommend small frequent meals and bites of food to help maintain nutrition and prevent anorexia/weight loss. If at any point you find that you have worsening symptoms, black or bloody stools, fevers, uncontrolled vomiting, slurred speech facial droop or chest pain then please return immediately to the ER. Continue to have very close scheduled follow-up with your primary care provider and your oncologist
[2022-01-03 12:04] LABS: BILIRUBIN,URINE NEGATIVE (NEGATIVE); GLUCOSE, URINE (UA) NEGATIVE (NEGATIVE); KETONES,URINE (UA) NEGATIVE (NEGATIVE); LEUKOCYTE ESTERASE, URINE NEGATIVE (NEGATIVE); NITRITE,URINE NEGATIVE (NEGATIVE); OCCULT BLOOD,URINE MODERATE (NEGATIVE); PH,URINE 6.5 PH (5.0-7.5); PROTEIN,URINE >=300 mg/dL (NEGATIVE); UROBILINOGEN,URINE 1 (NORMAL) E.U./dL (NORMAL)
[2022-01-03 12:13] LABS: ALBUMIN 2.9 g/dL (3.2-5.5); ALBUMIN/GLOBULIN RATIO 0.7 (1.0-2.2); BILIRUBIN,TOTAL 0.4 mg/dL (0.2-1.0); CALCIUM 10.3 mg/dL (8.5-10.3); CREATININE 0.9 mg/dL (0.6-1.2); POTASSIUM 4.3 mmol/L (3.5-5.0)
[2022-01-03 12:15] LABS: CLARITY,URINE CLEAR (CLEAR)
[2022-01-03 12:16] LABS: BACTERIA,URINE None Seen /HPF (None Seen); CASTS, URINE 0-2 Granular Casts /LPF; MUCUS,URINE Few Strands; SQUAMOUS EPITHELIAL CELL,UR RARE Squamous (<= Few)
[2022-01-03 12:27] VITALS: BP 152/79
--- NOTE | 2022-01-03 13:13 | CT Report ---
PROCEDURE: HEAD WO INDICATIONS: headache; active cancer TECHNIQUE: Noncontrast 4.5 mm thick angled axial sections acquired from the foramen magnum to the vertex. For r adiation dose reduction, the following was used: automated exposure control, adjustment of mA and/or kV according to patient size. COMPARISON: Correlation is made with prior brain MRI, 11/18/2021. Correlation is also made with the a ompanying abdomen pelvis CT, 01/03/2022. FINDINGS: Image quality: Excellent. CSF spaces: Basal cisterns are patent. No extra-axial fluid collections. Ventricles are normal in size and shape. Brain: No midline shift. No intracranial masses or hemorrhage. Giles-white matter interface is norm al. Skull and face: Calvarium and visualized facial bones are intact, without suspicious lesions. Sinuses: Visualized sinuses and mastoids are clear. IMPRESSION: No significant intracranial abnormality is seen. No masses or mass effect can be seen to the limits of this noncontrast head CT. Reviewed by: Fabian Aguirre MD on 01/03/2022 12:11 PM MORGAN Approved by: Fabian Aguirre MD on 01/03/2022 12:11 PM MORGAN Station ID: [id number]
--- NOTE | 2022-01-03 13:20 | CT Report ---
PROCEDURE: Abdomen/Pelvis W INDICATIONS: Liver cancer with bony mets.; Abdominal pain; n/v CONTRAST: IV CONTRAST: Optiray 320 ml: 100 PO CONTRAST: *NO PO CONTRAST TECHNIQUE: After the administration of IV contrast, 5 mm thick sections acquired from the diaphragms to the symp hysis. 5 mm thick coronal and sagittal reformats were acquired. For radiation dose reduction, the f ollowing was used: automated exposure control, adjustment of mA and/or kV according to patient size. COMPARISON: 07/05/2021, 08/30/2020. Correlation is also made with the accompanying head CT, 01/03/2022. FINDINGS: Image quality: Excellent. ABDOMEN: Lung bases: Lung bases are clear. Heart size is normal. Solid organs: The liver demonstrates a scalloped, nodular appearance. Within the superior anterior ri ght liver, there is focal increased enhancement seen, as on series 3 image 14. Liver irregularity can also be seen within the posterior right liver, as on series 3 image 20. The spleen is enlarged, measuring 16 cm AP. No focal splenic lesion can be seen. Gallbladder demonstrates layering gallstones, without additional CT findings of cholecystitis Biliar y system is non dilated. Pancreas enhances normally. No adrenal nodules. Kidneys demonstrate carlos l size and enhancement, without hydronephrosis. Renal vascular calcifications are seen. Peritoneum and bowel: Bowel loops demonstrate normal wall thickness and caliber. No free fluid or a ir. Distal colonic diverticulosis is seen, without findings of active diverticulitis. A moderate maria guadalupe unt of stool is seen within the colon. Nodes and vessels: Enlarged preaortic lymph node is seen that measures greater than 7 cm. This is sim ilar to the prior CT. Borderline prominent mesenteric lymph nodes are seen elsewhere. No enlarged ret roperitoneal lymph nodes are seen. Aorta and inferior vena cava are normal in size. Atherosclerotic calcification is seen. Miscellaneous: There is a fat-containing periumbilical hernia. PELVIS: Genitourinary: Bladder wall thickness is normal. Miscellaneous: No inguinal adenopathy. There is a mild left-sided and a trace right-sided fat-conta ining inguinal hernia. Bones: No suspicious bony lesions. No vertebral body compression fractures. Mild levoconvex scolio tic curvature is seen. Age-appropriate degenerative changes are seen, which are worst involving the lower lumbar spine. IMPRESSION: 2 areas of suspicious enhancement can be seen within the liver, which are consistent wit h the given history. When clinically appropriate, please consider a dedicated liver protocol MRI, if it would be helpful for clinical management decision making. An enlarged precaval lymph node is seen, which is similar to the prior. The liver demonstrates a cirrhotic appearance. There is mild splenomegaly. There is a moderate amount of stool seen within the colon. Please correlate with clinical constipatio n. Incidental note is made of: Gallstones Fat-containing periumbilical hernia Levoconvex scoliotic curvature Bilateral fat-containing inguinal hernias, left larger than right Reviewed by: Fabian Aguirre MD on 01/03/2022 12:18 PM MORGAN Approved by: Fabian Aguirre MD on 01/03/2022 12:18 PM MORGAN Station ID: [id number]
== END 2022-01-03 14:11 | disposition home or self-care (01) ==
LOC: ED 11:11
DX: K81.9 Cholecystitis, unspecified (principal); C22.0 Liver cell carcinoma; C22.7 Other specified carcinomas of liver; C79.9 Secondary malignant neoplasm of unspecified site; I10 Essential (primary) hypertension; F17.200 Nicotine dependence, unspecified, uncomplicated; E87.1 Hypo-osmolality and hyponatremia
CPT/HCPCS: 36415; 70450; 74177; 80053; 81001; 83690; 85025; 96361; 96374; 96375; 99284; 99285; J1170; Q9967; 81003; 87086

== ENCOUNTER 2022-02-02 15:46 | Outpatient (CLI) | payer MEDICARE, MEDICAID ==
[2022-02-02] MEDS ORDERED: GADOBUTROL 10 MMOL/10 ML VIAL ONE (16:12)
[2022-02-02] MEDS ORDERED: GADOBUTROL 10 MMOL/10 ML VIAL IVP ONE (16:33)
--- NOTE | 2022-02-02 17:33 | MRI Report ---
PROCEDURE: Lumbar Spine W/WO INDICATIONS: SEVERE LUMBAR PAIN, LIVER CA, METS ILIAC BONE CONTRAST: IV CONTRAST: Gadavist ml: 8.2 TECHNIQUE: Noncontrast sagittal T1 spin echo and T2 fast spin echo, sagittal STIR, axial T1 and T2 fast spin ech o through the lumbar spine. In cases with scoliosis, additional coronal T2 fast spin echo may be per formed. After the administration of contrast, sagittal and axial T1 spin echo with fat saturation th rough the lumbar spine. COMPARISON: Correlation is made with prior abdomen pelvis CT examinations, 01/03/2022, 01/05/2022 FINDINGS: Image quality: Excellent. Alignment and curvature: There is normal bony alignment. Marrow: Marrow is of normal overall signal. No acute vertebral body compression fractures. Within the posterior right sacrum at the S1-S2 level, there is abnormal signal seen, with increased STIR sig nal and increased enhancement, as seen on series 9 image 43 and on series 8 image 9. Spinal cord: Conus medullaris terminates at the T12-L1 level. Visualized spinal cord demonstrates n ormal signal, without suspicious enhancement. Paraspinous soft tissues: No paravertebral masses or abnormal enhancement. T11-T12: Mild to moderate loss of disc height is seen. Partially bridging anterior osteophytes are se en. Mild disc bulge is seen. Moderate bilateral neural foraminal narrowing is seen. No significa nt central canal narrowing is seen. T12-L1: The disc height is well-preserved. There is loss of disc signal seen. Mild disc bulge is se en. No significant neural foraminal or central canal narrowing can be seen. L1-L2: The disc height is well-preserved. There is loss of disc signal seen. Mild to moderate disc bulge is seen. Mild facet hypertrophy is seen. Moderate bilateral neuroforaminal narrowing can be seen, right worse than left. No significant central canal narrowing is seen. L2-L3: Moderate bilateral neural foraminal narrowing is seen. Moderate disc bulge is seen. A super imposed central disc protrusion is seen. Mild facet hypertrophy is seen. Moderate bilateral neurofo raminal narrowing can be seen, right worse than left. Moderate central canal narrowing is seen. L3-L4: The disc height is well-preserved. There is loss of disc signal seen. Moderate disc bulge i s seen at this level. A superimposed central disc protrusion is seen. Moderate facet hypertrophy i s seen. There is mild left-sided and at least moderate right-sided neuroforaminal narrowing. There i s a degree of compression seen upon the exiting right L3 nerve root. Moderate central canal narrowin g is seen. L4-L5: Moderate loss of disc height and signal are seen. Moderate disc bulge is seen at this level . A superimposed central disc protrusion is seen. Moderate facet hypertrophy is seen. There is at least moderate bilateral neuroforaminal narrowing seen, right worse than left. Compression is seen u breanne the exiting nerve roots. Moderate central canal narrowing is seen. L5-S1: At least moderate loss of disc height and disc signal can be seen. At least moderate disc bu lge is seen, which is eccentric to the left. Prior postoperative change can be seen, with left hemila minectomy. At least moderate facet hypertrophy is seen. Moderate to severe bilateral neural foraminal narrowing can be seen, with associated compression upon the exiting nerve roots. No significant valerio tral canal narrowing is seen. IMPRESSION: There is moderate suspicion for bony metastatic disease involving the right posterior sacrum at the S 1-S2 level. Multiple levels of lumbar spine degenerative change are seen, which are worst inferiorly. Several sites of significant neuroforaminal narrowing can be seen, with associated exiting nerve root compression. Moderate central canal narrowing can be seen at L2-L3, L3-L4, and L4-L5. Reviewed by: Fabian Aguirre MD on 02/02/2022 4:32 PM MORGAN Approved by: Fabian Aguirre MD on 02/02/2022 4:32 PM MORGAN Station ID: [id number]
== END 2022-02-02 15:47 | disposition home or self-care (01) ==
LOC: DI 15:46
PROVIDERS: ATTEND Nurse Practitioner Adult Health
DX: M47.26 Other spondylosis with radiculopathy, lumbar region (principal); M47.27 Other spondylosis with radiculopathy, lumbosacral region; M48.061 Spinal stenosis, lumbar region without neurogenic claudication; M48.07 Spinal stenosis, lumbosacral region; M51.17 Intervertebral disc disorders with radiculopathy, lumbosacral region; M51.16 Intervertebral disc disorders with radiculopathy, lumbar region; C22.0 Liver cell carcinoma; C79.51 Secondary malignant neoplasm of bone
CPT/HCPCS: 72158; A9585

== ENCOUNTER 2022-02-19 11:14 | Outpatient (CLI) | payer MEDICARE, MEDICAID ==
[2022-02-19] MEDS ORDERED: DIATRIZOATE MEGLU/DIATRIZO SOD 30 ML BOTTLE PO ONE ×2 (11:49→13:07)
--- NOTE | 2022-02-19 15:09 | CT Report ---
PROCEDURE: Abdomen/Pelvis W INDICATIONS: LIVER CA CONTRAST: IV CONTRAST: Optiray 320 ml: 100 PO CONTRAST: Redi-Cat ml30 TECHNIQUE: After the administration of oral and intravenous contrast, 5 mm thick sections acquired from the diap hragms to the symphysis. 5 mm thick coronal and sagittal reformats were acquired. For radiation dos e reduction, the following was used: automated exposure control, adjustment of mA and/or kV accordin g to patient size. COMPARISON: CT abdomen and pelvis 01/05/2022, 01/03/2022. FINDINGS: Image quality: Excellent. ABDOMEN: Lung bases: Lung bases are clear. No pleural effusion. Heart size is normal. Left ventricle calcifi cation, unchanged. Solid organs: Cirrhotic liver morphology. Heterogeneous hypodense foci in the right lower liver. Hypo dense focus in the left lobe of liver. Gallbladder is not distended. There is sludge or gallstones in the gallbladder. Possible trace pericholecystic fluid. The gallbladder appears unchanged. Biliary s ystem is non dilated. Pancreas enhances normally. No adrenal nodules. Spleen is at the upper limit s of normal. Kidneys demonstrate normal size and enhancement, without hydronephrosis. Small nonobstru cting kidney stones bilaterally. Peritoneum and bowel: No bowel injection. Diverticulosis. The appendix is absent. No pneumoperitoneum . No ascites. Nodes and vessels: Large heterogeneous periportal lymph node measuring 7.7 x 5.5 cm, (4/38), previous ly 7.9 x 5.7 cm, and more remotely 7.2 x 5.5 cm in June 2021. Additional small periportal lymph no ruth are similar. Small intra-aortocaval lymph node is unchanged. Aorta and inferior vena cava are no rmal in size. Extensive calcified plaque. Velocities in the left pelvis. Miscellaneous: Small umbilical hernia. PELVIS: Genitourinary: Bladder wall thickness is normal. Miscellaneous: No inguinal hernias or adenopathy. Bones: No suspicious bony lesions. No vertebral body compression fractures. IMPRESSION: 1. Cirrhotic liver morphology. Heterogeneous hypodense foci most pronounced in the right lobe of live r is stable to worsened. As could be further evaluated with liver MRI or multiphase liver CT. This ex am is not tailored for the evaluation of HCC. 2. Large heterogeneous periportal lymph node measuring 5.5 cm short axis diameter. Stable to slightly decrease in size. No new or enlarging lymph nodes identified. 3. No ascites. 4. Gallbladder is not distended. Cholelithiasis. Molar trace pericholecystic fluid. Reviewed by: Jean Looney MD on 02/19/2022 3:08 PM PDT Approved by: Jean Looney MD on 02/19/2022 3:08 PM PDT Station ID: [id number]
== END 2022-02-19 11:15 | disposition home or self-care (01) ==
LOC: DI 11:14
PROVIDERS: ATTEND Physician Assistant
DX: C22.8 Malignant neoplasm of liver, primary, unspecified as to type (principal); R59.0 Localized enlarged lymph nodes
CPT/HCPCS: 74177; Q9963; Q9967